=== PATIENT | female | born 1975 | race Caucasian/White ===

== ENCOUNTER → 2016-06-24 | Outpatient (CLI) | payer BC ==
[~2016-06-24] MED LIST: BCPILLS PO; MISCCAP80 PO; MULT-506 PO; PROP20TA67 PO
== END | disposition home or self-care (01) ==
LOC: C.PAPS 09:35
PROVIDERS: ATTEND Obstetrics & Gynecology
DX: Z01.419 Encounter for gynecological examination (general) (routine) without abnormal findings (principal)

== ENCOUNTER → 2016-06-25 | Day surgery (SDC) | payer BC ==
[2016-06-15 15:40] VITALS: BMI 23.0
[~2016-06-25] VITALS: Ht 162.6 cm; Wt 61.4 kg
[2016-06-25 08:51] VITALS: Ht 162.6 cm; Wt 61.4 kg
[2016-06-25 09:00] VITALS: BP 104/57; PULSE 61; TEMP 37.3; O2SAT 99
--- NOTE | 2016-06-25 12:43 | Procedure Note ---
Breath Hydrogen Test Interpretation Hydrogen breath test Ordering Provider: Dr. Jose Reading provider: Findings: 10 Gm Lactulose Time Hydrogen CO2 0 0 3.1 20 4 4.2 40 6 3.9 60 47 4.7 80 39 4.8 100 43 4.4 120 64 4.4 140 37 4.5 160 76 4.5 180 68 3.8 Impression: Marked increase in breath hydrogen during study period. Appears to be consistent with a positive hydrogen breath test. Further Recommendations per Dr. Jose
== END | disposition home or self-care (01) ==
LOC: C.GI 08:26
PROVIDERS: ATTEND Internal Medicine Gastroenterology
DX: K58.0 Irritable bowel syndrome with diarrhea (principal)

== ENCOUNTER → 2016-12-07 | Outpatient (CLI) | payer BC | END | disposition home or self-care (01) | LOC: C.LAB 07:01 | PROVIDERS: ATTEND Nutritionist | DX: R53.83 Other fatigue (principal) ==

== ENCOUNTER → 2017-04-27 | Outpatient (CLI) | payer BC | END | disposition home or self-care (01) | LOC: C.LABSPEC 14:17 | PROVIDERS: ATTEND Obstetrics & Gynecology | DX: L29.2 Pruritus vulvae (principal) ==

== ENCOUNTER 2023-10-08 17:55 | Observation (INO) ==
--- NOTE | 2023-10-08 18:25 | ED Triage Note ---
Date of Service October 08, 2023 Provider in Triage Author: Buzz Roa History of Present Illness This patient was briefly evaluated while in triage. An abbreviated physical exam was performed. This patient is a 48-year-old Female who presents to the ED for evaluation right mid-lower abdominal pain woke her from sleep overnight and has gotten worse as they day has gone on nausea, headache denies vomiting/diarrhea, urinary symptoms hx of lap hysterectomy hx of IBS and SIBO Physical Exam Initial orders for labs and / or imaging were placed and patient was placed in the waiting area until a bed is available. Please see further documentation for the full ED course.
[2023-10-08 19:00] LABS: Basophils # (auto) 0.06 K/uL (0.00-0.20); Basophils % (auto) 0.6 %; Eosinophils # (auto) 0.06 K/uL (0.00-0.50); Eosinophils % (auto) 0.6 %; Immature Granulocytes # (auto) 0.04 K/uL (0.01-0.20); Immature Granulocytes % (auto) 0.4 %; Lymphocytes # (auto) 1.28 K/uL (1.20-3.40); Lymphocytes % (auto) 11.8 %; Mean Corpuscular Hemoglobin 30.1 pg (25.0-34.0); Mean Corpuscular Hgb Conc 33.3 g/dL (32.0-36.0); Mean Corpuscular Volume 90.4 fL (80.0-100.0); Mean Platelet Volume 9.8 fL (9.4-12.4); Monocytes # (auto) 1.29 K/uL (0.11-0.59); Monocytes % (auto) 11.9 %; Neutrophils # (auto) 8.14 K/uL (1.40-6.50); Neutrophils % (auto) 74.7 %; Platelet Count 212 K/uL (130-400); RDW Coefficient of Variation 13.1 % (11.5-14.5); RDW Standard Deviation 43.7 fL (36.4-46.3); Red Blood Count 4.98 M/uL (4.20-5.40); White Blood Count 10.87 K/ul (4.8-10.8)
[2023-10-08] MEDS: OPTIRAY 320 100ml IV ONE (19:56)
[2023-10-08 19:58] LABS: iSTAT Creatinine 0.9 mg/dl (0.6-1.3); iSTAT Ionized Calcium 1.19 mmol/l (1.12-1.32)
[2023-10-08 20:13] LABS: Albumin Globulin Ratio 1.8 (0.9-2); Albumin Level 4.5 gm/dl (3.4-5.0); Bilirubin,Total 0.7 mg/dl (0.2-1.0); Calcium 10.2 mg/dl (8.6-10.3); Creatinine Clr Calc Pharmacy 69.8 ml/min; Est GFR (African American) 93.2 ml/min; Est GFR (Non-African American) 80.4 ml/min; Globulin 2.5 gm/dl (2.5-4.0); Potassium 4.1 mmol/L (3.5-5.1)
--- NOTE | 2023-10-08 20:22 | Emergency Department Note ---
Impression & Plan Diverticulitis of large intestine with complication, Abdominal pain, Nausea, Leukocytosis ED Provider Note NAME: MIKE SCOTT AGE: 48 SEX: F : 1975 ARRIVES VIA: Walk-In INFORMANT: Patient ED PROVIDER(S): Sukhi Taylor MD CHIEF COMPLAINT: Abdominal pain PLAN: Disposition: Admit MEDICAL DECISION MAKING: The patient is a pleasant 48-year-old woman with a past medical history of IBS, history of small bowel bacterial overgrowth, GERD who presents to the emergency department via walk-in accompanied by her for evaluation of generalized abdominal pain associated nausea that began yesterday and persisted into today becoming more severe facility nausea but without vomiting or diarrhea. Denies any fevers, cough congestion, chest pain or shortness of breath. She reports she suspected she may have been having a flare of IBS or acid reflux and wanted to give it time to improve but due to worsening and new character she presents for evaluation. Of note, the patient did arrive to emergency department during time of high volume, acuity and prolonged emergency department waiting times. Critical pathways initiated from triage. On evaluation the patient is fatigued appearing but no distress, afebrile with stable vital signs. She appears clinically dry. She has generalized abdominal tenderness without guarding or rebound. WBC 10.8 K with neutrophil predominance but no left shift. H/H and platelets within normal limits. Chemistry without metabolic acidosis. Electrolytes LFTs without significant abnormality. Lipase normal. UA without convincing evidence infection. CT of the abdomen/pelvis was performed and demonstrates evidence of diverticulitis or diffuse wall thickening is noted of the proximal transverse colon with scattered diverticuli and moderate mesenteric edema characteristic of diverticulitis. Description of small area of questionable free air is noted which may represent small microperforation. There is no evidence of abscess. Transverse colon mass cannot be entirely excluded and follow-up CT following resolution of symptoms is recommended. Findings reviewed with the patient and her at the bedside. They do agree with plan for admission for further management. Treatment was initiated with IV Zosyn. Case was discussed with Dr. Hernandez, [facility] hospitalist who will evaluate the patient for admission. Case was also reviewed with Dr. Madden, general surgery on-call. Agrees admission to hospital service for IV antibiotics. Surgical be available for inpatient consultation. Appreciate consultation and recommendations. Admitting team was updated. Further management per admitting team. Triage Nursing notes reviewed and agree them. Prior/external medical records reviewed Vital Signs: reviewed Differential diagnosis: Gastroenteritis, food borne illness, infections, appendicitis, diverticulitis, inflammatory bowel disease, obstruction, GI bleed, biliary pathology, volvulus, as well as other pathologies. ER treatment provided: See below. Diagnostics interpreted by me: Cardiac Monitoring: An order for continuous cardiac monitoring was placed and demonstrated normal sinus rhythm, 83 bpm, no ectopy. Laboratory studies: See below Imaging studies: See below Consultation(s): Dr. Hernandez, [facility] hospitalist. Dr. Madden, general surgery on-call. HPI: The patient is a pleasant 48-year-old woman with a past medical history of IBS, history of small bowel bacterial overgrowth, GERD who presents to the emergency department via walk-in accompanied by her for evaluation of generalized abdominal pain associated nausea that began yesterday and persisted into today becoming more severe facility nausea but without vomiting or diarrhea. Denies any fevers, cough congestion, chest pain or shortness of breath. She reports she suspected she may have been having a flare of IBS or acid reflux and wanted to give it time to improve but due to worsening and new character she presents for evaluation. ROS: See above HPI for pertinent positives & negatives. A total of 10 systems reviewed and were otherwise negative. VITALS:See Below PHYSICAL EXAMINATION: GENERAL: Awake, alert, in no distress HENT: Normocephalic, atraumatic. Oropharynx with dry mucous membranes and otherwise unremarkable. EYES: Normal conjunctiva. Sclera non-icteric. NECK: Supple. No nuchal rigidity. FROM. No JVD. RESPIRATORY: Clear to auscultation. CARDIAC: Regular rate, normal rhythm. Extremities warm and well perfused. Pulses equal. ABDOMEN: Soft, non-distended. Mild generalized tenderness to palpation. No rebound or guarding. MUSCULOSKELETAL: Chest examination reveals no tenderness. The back is symmetrical on inspection without obvious abnormality. There is no CVA tenderness to palpation. No joint edema. LOWER EXTREMITIES: Calves are equal size bilaterally and non-tender. No edema. No discoloration. NEURO: Normal sensorium. No sensory or motor deficits noted. SKIN: No rash or jaundice noted. Sukhi Taylor MD Past Med/Surg History Problem List (Updated 10/09/23 @ 04:59 by Sukhi Taylor MD) Leukocytosis (Acute) Nausea (Acute) Abdominal pain (Acute) Diverticulitis of large intestine with complication (Acute) Encounter for pre-operative examination Migraine Encounter for routine gynecological examination with Papanicolaou smear of cervix (Acute) Menorrhagia Medical History GERD (gastroesophageal reflux disease) Hypothyroidism Hx of migraines Gestational diabetes hx-resolved Anemia Abnormal menses Cycles 25 days, bleeds 7 days but spots up to 14 days total. Genital herpes Patient states not correct / no history of outbreak Epidermal cyst pt unsure about this? Surgical History H/O: hysterectomy robotic TLH, retains ovaries History of esophagogastroduodenoscopy (EGD) Hx of colonoscopy H/O tubal ligation H/O oral surgery Hx of section x3 Family History Aunt Breast cancer Mother Hypertension Son Celiac sprue Grandmother (Maternal) Osteoporosis Social History Smoking Status: Never smoker Second Hand Exposure: No; Do You Dip or Chew Tobacco: No; Hx Alcohol Use: No Hx Substance Use: No Preferred Language: Mohawk Communication Ability: Effective Rat Exterminator Required: No Beliefs That Will Affect Care: None marital status: Current Living Situation: Spouse Other Information That Helps Us Care for You: No Feels Safe at Home: Yes Safety Concerns: Feels Safe At This Time Assistive Devices: Glasses Allergies Allergies Allergy/AdvReac Type Severity Reaction Status Date / Time strawberry Allergy Intermediate hives Verified 11/18/22 09:23 No Known Drug Allergies Allergy Unknown . Verified 11/18/22 09:23 egg Allergy Headache Verified 11/18/22 09:23 Home Meds Home Medications Medication Instructions Recorded Confirmed cholecalciferol (vitamin D3) 50 50 mcg PO QPM 09/18/19 10/09/23 mcg (2,000 unit) tablet fluticasone propionate 50 1 spray intranasal QAM 09/18/19 10/09/23 mcg/actuation nasal spray,suspension pyridoxine (vitamin B6) 50 mg 50 mg PO QPM 09/18/19 10/09/23 tablet biotin 800 mcg tablet 800 mcg PO QPM 06/15/22 10/09/23 sucralfate 1 gram tablet (Carafate) 1 g PO TID PRN stomach cramping 09/14/22 10/09/23 levothyroxine 50 mcg tablet 50 mcg PO QAM 09/23/22 10/09/23 Results & Data (ED) Vital Signs Vital Signs - 24 hr 10/08/23 18:23 10/08/23 20:54 10/08/23 21:00 Temperature 37.0 C Temperature Source Temporal Artery Scan Pulse Rate 83 68 68 Pulse Rate from SpO2 Sensor 69 Respiratory Rate 18 20 Blood Pressure 120/73 117/66 Blood Pressure Mean 88 83 Pulse Oximetry 100 100 Oxygen Delivery Method Room Air Room Air Sepsis Recent Fever Within 48 Hours No Sepsis New/Unexplained Change in Mental Status No Sepsis Action Taken by Nursing No Action Required 10/08/23 21:30 10/08/23 22:33 10/08/23 23:12 Temperature Temperature Source Pulse Rate 68 66 70 Pulse Rate from SpO2 Sensor 69 66 Respiratory Rate 16 14 21 Blood Pressure 113/68 109/64 111/62 Blood Pressure Mean 83 79 78 Pulse Oximetry 99 98 97 Oxygen Delivery Method Room Air Room Air Sepsis Recent Fever Within 48 Hours Sepsis New/Unexplained Change in Mental Status Sepsis Action Taken by Nursing 10/09/23 00:00 Temperature Temperature Source Pulse Rate 60 Pulse Rate from SpO2 Sensor Respiratory Rate 23 Blood Pressure 107/67 Blood Pressure Mean 80 Pulse Oximetry 96 Oxygen Delivery Method Sepsis Recent Fever Within 48 Hours Sepsis New/Unexplained Change in Mental Status Sepsis Action Taken by Nursing Laboratory Data Attestation: I reviewed the patient's lab results. 10/08/23 18:42 10/08/23 Unknown Lab Results 10/08/23 10/08/23 10/08/23 Range/Units 18:42 19:44 Unknown WBC 10.87 H (4.8-10.8) K/ul RBC 4.98 (4.20-5.40) M/uL Hgb 15.0 (12.0-16.0) g/dl POC Hgb 15.0 (12.0-16.0) g/dl Hct 45.0 (37.0-47.0) % POC Hct 44 (37-47) % MCV 90.4 (80.0-100.0) fL MCH 30.1 (25.0-34.0) pg MCHC 33.3 (32.0-36.0) g/dL RDW Std Deviation 43.7 (36.4-46.3) fL RDW Coeff of Adan 13.1 (11.5-14.5) % Plt Count 212 (130-400) K/uL MPV 9.8 (9.4-12.4) fL Immature Gran % (Auto) 0.4 % Neut % (Auto) 74.7 % Lymph % (Auto) 11.8 % Moca % (Auto) 11.9 % Eos % (Auto) 0.6 % Baso % (Auto) 0.6 % Neut # (Auto) 8.14 H (1.40-6.50) K/uL Lymph # (Auto) 1.28 (1.20-3.40) K/uL Moca # (Auto) 1.29 H (0.11-0.59) K/uL Eos # (Auto) 0.06 (0.00-0.50) K/uL Baso # (Auto) 0.06 (0.00-0.20) K/uL Immature Gran # (Auto) 0.04 (0.01-0.20) K/uL POC Sodium 137 (135-144) mmol/L Sodium Cancelled 138 POC Potassium 4.0 (3.3-5.0) mmol/L Potassium Cancelled 4.1 POC Chloride 102 (101-112) mmol/L Chloride Cancelled 103 Carbon Dioxide Cancelled 28 POC Total CO2 25 (24-31) mmol/L Anion Gap Cancelled 7 POC Anion Gap 15.0 L (16-25) mmol/L POC BUN 10 (7-18) mg/dl BUN Cancelled 12 Creatinine Cancelled 0.86 POC Creatinine 0.9 (0.6-1.3) mg/dl Est Cr Clr Drug Dosing Cancelled 69.8 Est GFR ( Amer) Cancelled 93.2 Est GFR (Non-Af Amer) Cancelled 80.4 BUN/Creatinine Ratio Cancelled 14.0 Glucose Cancelled 97 POC Glucose (other) 95 (70-99) mg/dl Calcium Cancelled 10.2 POC Ioniz Calcium Leonila 1.19 (1.12-1.32) mmol/l Total Bilirubin Cancelled 0.7 AST Cancelled 12 L ALT Cancelled 14 Alkaline Phosphatase Cancelled 41 Total Protein Cancelled 7.0 Albumin Cancelled 4.5 Globulin Cancelled 2.5 Albumin/Globulin Ratio Cancelled 1.8 Lipase Cancelled 18 Urine Color Yellow Urine Appearance Clear (Clear) Urine pH 7.0 (4.5-7.5) Ur Specific Jasper > 1.045 H (1.000-1.030) Urine Protein Trace H (Negative) Urine Glucose (UA) Negative (Negative) Urine Ketones 1+ H (Negative) Urine Blood Negative (Negative) Urine Nitrite Negative (Negative) Urine Bilirubin Negative (Negative) Urine Urobilinogen Negative (Negative) Ur Leukocyte Esterase Negative (Negative) Urine WBC (Auto) 0-5 (0-5) /hpf Urine RBC (Auto) 3-5 H (0-2) /hpf U Hyaline Cast (Auto) 0-2 (0-2) /lpf U Epithel Cells (Auto) 0-2 (0-2) /hpf Urine Bacteria (Auto) None Seen (None Seen) Administered Medications Sodium Chloride (Nss) 1,000 mls @ 200 mls/hr IV .Q5H STA Stop: 10/09/23 05:09 Last Admin: 10/09/23 00:26 Dose: 200 mls/hr Documented By: TRESA Discontinued Medications Acetaminophen (Ofirmev) 1,000 mg in 100 mls @ 400 mls/hr IV NOW STA Stop: 10/08/23 21:47 Last Infusion: 10/08/23 22:30 Dose: Infused Documented By: Admin: 10/08/23 21:45 Dose: 400 mls/hr Documented By: JESS Piperacillin Sod/Tazobactam Sod (Zosyn) 4.5 gm in 100 mls @ 200 mls/hr IV NOW ONE Stop: 10/08/23 23:27 Last Infusion: 10/09/23 00:09 Dose: Infused Documented By: Admin: 10/08/23 23:09 Dose: 200 mls/hr Documented By: TRESA Ioversol (Optiray 320 100ml) 94 ml IV ONCE ONE Stop: 10/08/23 19:56 Last Admin: 10/08/23 19:56 Dose: 94 ml Documented By: RICKIE Morphine Sulfate (Morphine Sulfate 4 Mg/Ml 1 Ml Carp\Vial) 4 mg IV Q2H PRN PRN Reason: Severe Pain (Rating 7,8,9,10) Stop: 10/22/23 22:57 Last Admin: 10/09/23 00:26 Dose: 4 mg Documented By: TRESA Imaging Data Radiologist's Impression: Abdomen/Pelvis CT 10/08/23 18:25 Exam(s): CT ABDOMEN + PELVIS With Contrast IV Amt: 94ml optiray 320 EXAM: CT Abdomen and Pelvis With Intravenous Contrast CLINICAL HISTORY: Reason for exam: RIGHT ABDOMINAL PAIN. TECHNIQUE: Axial computed tomography images of the abdomen and pelvis with intravenous contrast. CTDI is 14.43 mGy and DLP is 697.8 mGy-cm. Automated exposure control was utilized for the study. A dose lowering technique was utilized adhering to the principles of ALARA. CONTRAST: Patient received 94ml optiray 320 of IV contrast COMPARISON: No relevant prior studies available. FINDINGS: Lung bases: Unremarkable. No mass. No consolidation. ABDOMEN: Liver: Unremarkable. No mass. Gallbladder and bile ducts: Unremarkable. No calcified stones. No ductal dilation. Pancreas: Unremarkable. No mass. No ductal dilation. Spleen: Unremarkable. No splenomegaly. Adrenals: Unremarkable. No mass. Kidneys and ureters: Unremarkable. No solid mass. No hydronephrosis. Stomach and bowel: Diffuse wall thickening of the proximal transverse colon with scattered diverticula and moderate mesenteric edema, characteristic of diverticulitis. Fluid-filled loops of distal small bowel. No evidence of obstruction. PELVIS: Appendix: The appendix is not visualized. Bladder: Unremarkable. No mass. Reproductive: Unremarkable as visualized. ABDOMEN and PELVIS: Intraperitoneal space: Small area of questionable free air best seen on series 2, image 42 which may represent small microperforation. No abscess. No significant fluid collection. Bones/joints: No acute fracture. No dislocation. Soft tissues: Unremarkable. Vasculature: Unremarkable. No abdominal aortic aneurysm. Lymph nodes: Unremarkable. No enlarged lymph nodes. IMPRESSION: 1. Diffuse wall thickening of the proximal transverse colon with scattered diverticula and moderate mesenteric edema, characteristic of diverticulitis. Small area of questionable free air best seen on series 2, image 42 which may represent small microperforation. No abscess Transverse colon mass cannot be entirely excluded, recommend follow-up after resolution Electronically signed by: Alexus Coley MD 10/08/23 22:37 PM Discharge Plan Visit Data Chief Complaint: Abdominal Pain Stated Complaint: POSSIBLE APPENIDISITIS, ABD PAIN, FEELS WARM ED Provider: Sukhi Taylor Discharge Problem: Diverticulitis of large intestine with complication, Abdominal pain, Nausea, Leukocytosis Patient Disposition: Admitted As Inpatient Discharge Instructions Interventions: ED Discharge Assessment Last Done: 10/09/23 00:22 Discharge Problem: Abdominal pain Qualifiers: Abdominal location: generalized Qualified Code(s): R10.84 - Generalized abdominal pain Leukocytosis Qualifiers: Leukocytosis type: unspecified Qualified Code(s): D72.829 - Elevated white blood cell count, unspecified
[2023-10-08 21:40] LABS: Appearance Urine Clear (Clear); Bacteria Urine Automated None Seen (None Seen); Bilirubin Urine Negative (Negative); Blood Urine Negative (Negative); Cast Urine Automated 0-2 /lpf (0-2); Color Urine Yellow; Epithelial Cell Urine Auto 0-2 /hpf (0-2); Glucose Urine UA Negative (Negative); Ketones Urine 1+ (Negative); Leukocyte Esterase Urine Negative (Negative); Nitrite Urine Negative (Negative); Protein Urine Trace (Negative); Specific Gravity Urine > 1.045 (1.000-1.030); Urobilinogen Urine Negative (Negative); WBC Urine Automated 0-5 /hpf (0-5)
[2023-10-08] MEDS: ACETAMINOPHEN 1,000 MG/100 ML VIAL IV STA (21:45)
--- NOTE | 2023-10-08 22:38 | CT Scan Report ---
Exam(s): CT ABDOMEN + PELVIS With Contrast IV Amt: 94ml optiray 320 EXAM: CT Abdomen and Pelvis With Intravenous Contrast CLINICAL HISTORY: Reason for exam: RIGHT ABDOMINAL PAIN. TECHNIQUE: Axial computed tomography images of the abdomen and pelvis with intravenous contrast. CTDI is 14.43 mGy and DLP is 697.8 mGy-cm. Automated exposure control was utilized for the study. A dose lowering technique was utilized adhering to the principles of ALARA. CONTRAST: Patient received 94ml optiray 320 of IV contrast COMPARISON: No relevant prior studies available. FINDINGS: Lung bases: Unremarkable. No mass. No consolidation. ABDOMEN: Liver: Unremarkable. No mass. Gallbladder and bile ducts: Unremarkable. No calcified stones. No ductal dilation. Pancreas: Unremarkable. No mass. No ductal dilation. Spleen: Unremarkable. No splenomegaly. Adrenals: Unremarkable. No mass. Kidneys and ureters: Unremarkable. No solid mass. No hydronephrosis. Stomach and bowel: Diffuse wall thickening of the proximal transverse colon with scattered diverticula and moderate mesenteric edema, characteristic of diverticulitis. Fluid-filled loops of distal small bowel. No evidence of obstruction. PELVIS: Appendix: The appendix is not visualized. Bladder: Unremarkable. No mass. Reproductive: Unremarkable as visualized. ABDOMEN and PELVIS: Intraperitoneal space: Small area of questionable free air best seen on series 2, image 42 which may represent small microperforation. No abscess. No significant fluid collection. Bones/joints: No acute fracture. No dislocation. Soft tissues: Unremarkable. Vasculature: Unremarkable. No abdominal aortic aneurysm. Lymph nodes: Unremarkable. No enlarged lymph nodes. IMPRESSION: 1. Diffuse wall thickening of the proximal transverse colon with scattered diverticula and moderate mesenteric edema, characteristic of diverticulitis. Small area of questionable free air best seen on series 2, image 42 which may represent small microperforation. No abscess Transverse colon mass cannot be entirely excluded, recommend follow-up after resolution Electronically signed by: Alexus Coley MD 10/08/23 22:37 PM
[2023-10-08] MEDS ORDERED: MoRPHine SULFATE 2 MG/ML CARP IV PRN (22:58)
[2023-10-08] MEDS: PIPERACILLIN/TAZOBACTAM 4.5 GM/100 ML BAG IV ONE (23:09)
--- OUTSIDE RECORDS SUMMARY | 2023-10-08 23:35 | External Medical Summary ---
Author Name Unknown Address Unknown Organization K01:[facility] [address] [place] [address] Laboratory Report Ordering Provider Test Date Status FELIX MOYA 05/26/2023 08:18:22 Final Observation Date Value Abnormality Reference (Units ) Status T4, Free 05/26/2023 08:18:22 1.3 0.9-1.7 (n g/dL) Final Performing Location [facility] [address] [place] [address]
--- OUTSIDE RECORDS SUMMARY | 2023-10-08 23:35 | External Medical Summary ---
Author Name Unknown Address Unknown Organization K0G:[facility] [address] [place] [id number] Laboratory Report Ordering Provider Test Date Status FELIX MOYA 05/26/2023 08:18:22 Final Observation Date Value Abnormality Reference (Units ) Status BUN 05/26/2023 08:18:22 20 6-20 (mg/dL) Final Creatinine 05/26/2023 08:18:22 1.1 Above high normal 0.5-1.0 (mg/dL) Final Glomerular filtration rate/1.73 sq M.predicted [Volume Rate/Area] in Serum, Plasma or Blood by Creatinine-based formula (CKD-EPI) 05/26/2023 08:18:22 64 >=60 (mL/min) Final eGFR is calculated based on the CKD-EPI 2020 equation Sodium 05/26/2023 08:18:22 139 135-146 (m mol/L) Final Potassium 05/26/2023 08:18:22 4.4 3.5-5.1 (m mol/L) Final Cl 05/26/2023 08:18:22 104 98-107 (mm ol/L) Final CO2 05/26/2023 08:18:22 21 Below low normal 22- 32 (mmol/L) Final Anion gap 05/26/2023 08:18:22 14 7-15 (mmol /L) Final Glucose 05/26/2023 08:18:22 95 70-120 (mg /dL) Final Calcium 05/26/2023 08:18:22 9.5 8.4-10.2 ( mg/dL) Final Performing Location [facility] [address] [place] [id number]
--- OUTSIDE RECORDS SUMMARY | 2023-10-08 23:35 | External Medical Summary | Summary of Care ---
Author Name Unknown Organization [facility] Address [address] [place] [address] Phone [phone] Care Team Providers Care Fire Management Specialist Name Role Phone Juan Carlos Cool MD Primary Care Provider [phone] Reason for Visit * Reason Comments Outpatient Testing Encounter Details Date Type Department Care Team (Late st Contact Info) Description 05/26/2023 8:50 AM EDT Laboratory Laboratory, [facility] [address] [facility] [place] [address] [facility] 132 [facility] [place] [address] Acquired hypothyroidism; Gastroesophageal reflux disease with esophagitis without hemorrhage Allergies Active Allergy Reactions Criticality Noted Date Comments Egg-Derived Products Neuro complications (Please comment) 06/07/2018 Headaches documented as of this encounter (statuses as of 05/26/2023) Medications Medication Sig Dispensed Refills Start Date End Date Status Cholecalciferol (VITAMIN D) 2000 units Capsule Take 1,000 Units by mouth daily. 0 Active B Complex Capsule Take 1 Cap by mouth daily. 0 Active Calcium 600 MG Tablet Take 1 Tablet by mouth in the morning and 1 Tablet at noon and 1 Tablet in the evening. Take with meals. 0 Active Levothyroxine Sodium 50 MCG Oral Tablet (Levoxyl) Take 1 Tablet by mouth in the morning. 90 Tablet 3 05/08/2022 Active Rizatriptan Benzoate 10 MG Oral Tablet Disintegrating (Maxalt-DELICATESSEN GOODS STOCK CLERK)Indications :Migraine with aura and with status migrainosus, not intractable Take 1 Tablet by mouth as needed for Migraine. at onset of headache, may repeat every 2 hours. No more than 2 pills in 24 hours 20 Tablet 0 05/26/2023 Active Fluticasone Propionate 50 MCG/ACT Nasal Suspension (Flonase)Indications:Ch ronic rhinitis SPRAY 2 SPRAYS INTO EACH NOSTRIL EVERY DAY 3 Each 2 05/26/2023 Active Sucralfate 1 GM Oral Tablet (Carafate) Take 1 Tablet by mouth every evening. 90 Tablet 3 05/26/2023 Active documented as of this encounter (statuses as of 05/26/2023) Active Problems Problem Noted Date Diagnosed Date Migraine variant 05/26/2023 Acquired hypothyroidism 04/30/2021 Small intestinal bacterial overgrowth 10/01/2016 Irritable bowel syndrome wit h both constipation and diarrhea 04/24/2016 Gastroesophageal reflux disease with esophagitis 03/27/2016 documented as of this encounter (statuses as of 05/26/2023) Resolved Problems Problem Noted Date Diagnosed Date Resolved Date Allergic contact dermatitis 11/29/2017 12/02/2018 Chronic rhinitis 11/29/2017 12/02/2018 Chronic tension-type headach e, not intractable 04/24/2016 05/26/2023 Elevated 1 hour post-prandial sugars 11/11/2009 03/27/2016 Overview: Pt with a hx/o GDM with her prior . Was started on accuchecks for this w/o a 1 hour or 3 hour GCT. Pt was given instructions to check fasting and 1 hour PP sugars with goals of 95 for fasting and 150 for 1 hour PP. After review of pt's log, limited 1 hour checks noted, with 3 of the 1 hour PP in the last 2 weeks found to be >150. After being told her baby's AC measurement was @ 3%, she was instructed to come off her GDM diet. Given the increased likelyhood that Ms. Fontenot has GDM, she has been instructed to continue with accuchecks. She has been recommended to undergo fasting and 2 hour PP checks with goals of 95 for fasting and 120 for 2 hour PP. She understands that the goal for her GDM is to keep her sugars w/in her goals as best possible, while avoiding hypoglycemia. Today's U/S (11/11/09) notes an AC at the 78% with an overall EFW at the 42%. She has agreed to f/u in 3 weeks for a f/u growth scan. documented as of this encounter (statuses as of 05/26/2023) Immunizations Name Administration Dates Next Due COVID-19 mRNA, LNP-s, No Pre serve, 2-Dose Series (Pfizer) 01/21/2021,05/22/2020,04/29/2020 DTaP Dipth/Tet/Acell Pertussis (Infanrix), Peds 12/04/2009 Seasonal Influenza, PF, 6 M & above, IM , (FluLaval or Fluzone) 11/19/2017,11/16/2016 Seasonal Influenza, Quadriva lent, No Preserve, IM 02/06/2016 Seasonal Influenza, Quadriva lent, No Preserve, Mdck 11/11/2022,10/30/2021,11/09/2019 Seasonal Influenza, Recombin ant, RIV4, PF, (Flublock) 12/10/2020,01/02/2019 Seasonal Influenza, Split, I IV3, With Preserve, Inj 11/06/2013,12/06/2012,02/25/2012, 011 documented as of this encounter Social History Tobacco Use Types Packs/Day Years Used Date Smoking Tobacco: Never Smokeless Tobacco: Never Alcohol Use Standard Drinks/Week Comments No 0 (1 standard drink = 0.6 oz pur e alcohol) PHQ-2 Answer Date Recorded PHQ-2 Score 0 11/29/2018 Hunger Vital Sign Answer Date Recorded Within the past 12 months, y ou worried that your food would run out before you got the money to buy more. Never true 05/26/19 23 Within the past 12 months, t he food you bought just didn't last and you didn't have money to get more. Never true 05/25/2022 Sex and Gender Information Value Date Recorded Sex Assigned at Female 05/25/2022 12:50 PM EDT Gender Identity Female 05/25/2022 12:50 PM EDT Sexual Orientation Straight 05/25/2022 12 :50 PM EDT Job Start Date Occupation Industry Not on file Not on file Not on file documented as of this encounter Plan of Treatment Upcoming Encounters Date Type Department Care Team (Late st Contact Info) Description 05/26/2024 9:00 AM EDT Office Visit Family [facility] [address] [place] [address] Juan Carlos Cool MD [address] [place] [address] Pending Results Name Type Priority Associated Diagnoses Date /Time TSH Lab Routine Acquired hypothyroidism 05/26/2023 8:18 AM EDT T4, FREE Lab Routine Acquired hypothyroidism 05/26/2023 8:18 AM EDT T3, FREE Lab Routine Acquired hypothyroidism 05/26/2023 8:18 AM EDT THYROID ANTIBODY AND TPO ANTIBODY Lab Routine Acquired hypothyroidism 05/26/2023 8:18 AM EDT BASIC METABOLIC PANEL Lab Routine Gastroesophageal reflux disease with esophagitis without hemorrhage 05/26/2023 8:18 AM EDT Health Maintenance Due Date Last Done Comments HIV Screening 08/05/1991 Hepatitis C Screening 1994 Hepatitis B (1 of 3 - 19+ 3-dose series) 08/05/1995 HPV/Co-Test 2006 Depression Screening 11/30/2019 11/29/2018 DTaP,Tdap,and Td Vaccines (2 - Tdap) 12/05/2019 12/04/2009 Pap Smear 02/11/2021 02/11/2018, 05/0 10/2015, 01/05/2014, Additional history exists Cologuard 2021 Fecal Occult Blood Test 2021 Sigmoidoscopy 2021 COVID-19 Vaccine ( season) 2022 01/21/2021, 05/22/2020, 04/29/2020 TSH 06/13/2023 06/12/2022, 04/16, 06/09/2021, Additional history exists Lipid Panel 12/08/2023 12/07/2018 Mammogram 03/12/2024 03/12/2023, 02/16, 10/18/2020, Additional history exists Colonoscopy 05/08/2026 05/08/2016, 05/08/2016 Colorectal Cancer Screening 05/08/2026 Influenza Vaccine (FLU shot) Completed 11/11/2022, 10/30/2021, 12/10/2020, Additional history exists Cervical Cancer Screening Discontinued GARDASIL-HPV IMMUNIZATION SERIES Aged Out No longer eligible based on patient's age to complete this topic MENINGOCOCCAL (MENACTRA/MENVEO) Aged Out No longer eligible based on patient's age to complete this topic Pneumococcal Vaccine: Pediatrics (0 to 5 Years) and At-Risk Patients (6 to 64 Years) Aged Out No longer eligible based on patient's age to complete this topic documented as of this encounter Medical Devices Not on filedocumented as of this encounter Visit Diagnoses Diagnosis Acquired hypothyroidism Unspecified hypothyroidism Gastroesophageal reflux disease with esophagitis without hemorrhage documented in this encounter Care Teams Fire Management Specialist Relationship Specialty Start Date End Date Juan Carlos Cool MD [address] [place] [address] PCP - General Family Medicine 02/06/16 documented as of this encounter
--- OUTSIDE RECORDS SUMMARY | 2023-10-08 23:35 | External Medical Summary | Summary of Care ---
Author Name Unknown Organization [facility] Address [address] [place] [address] Phone [phone] Care Team Providers Care Precision Devices Inspector/Tester Name Role Phone Juan Carlos Cool MD Primary Care Provider [phone] Encounter Details Date Type Department Care Team (Late st Contact Info) Description 06/28/2023 Orders Only Outcomes Research Department [address] [place] [address] Nicolasa Lizama CHRA [employer] [facility] Other*[id number] Allergies Active Allergy Reactions Criticality Noted Date Comments Egg-Derived Products Neuro complications (Please comment) 06/07/2018 Headaches documented as of this encounter (statuses as of 06/28/2023) Medications Medication Sig Dispensed Refills Start Date [...] Rizatriptan Benzoate 10 MG Oral Tablet Disintegrating (Maxalt-HEADING MATCHER AND ASSEMBLER)Indications :Migraine with aura and with status migrainosus, [...] as of this encounter (statuses as of 06/28/2023) Active Problems Problem Noted Date Diagnosed Date Migraine variant 05/26/2023 Acquired hypothyroidism 04/30/2021 Small intestinal bacterial overgrowth 10/01/2016 Irritable bowel syndrome wit h both constipation and diarrhea 04/24/2016 Gastroesophageal reflux disease with esophagitis 03/27/2016 documented as of this encounter (statuses as of 06/28/2023) Resolved Problems Problem Noted Date Diagnosed Date [...] as of this encounter (statuses as of 06/28/2023) Immunizations Name Administration Dates Next Due COVID-19 [...] 05/26/2024 9:00 AM EDT Office Visit Family [facility] [address] [place] [address] Juan Carlos Cool MD [address] [place] [address] Scheduled Orders Name Type Priority Associated Diagnoses Orde r Schedule MYCODE SUBSEQUENT ADULT Lab Routine [facility] Research Other*[id number] Every 6 Months for 2 Occurrences starting 06/28/2023 until 07/17/2024 Health Maintenance Due Date Last Done Comments [...] Vaccine ( season) 2022 01/21/2021, 05/22/2020, 04/29/2020 Lipid Panel 12/08/2023 12/07/2018 Mammogram 03/12/2024 03/12/2023, 02/16, 10/18/2020, Additional history exists TSH 05/25/2024 05/26/2023, 05/17, 05/08/2022, Additional history exists Colonoscopy 05/08/2026 05/08/2016, 05/08/2016 Colorectal Cancer Screening 05/08/2026 Diabetes Screening 05/25/2026 05/26/2023, 0 06/12/2022, 05/08/2022, Additional history exists Influenza Vaccine (FLU shot) Completed 11/11/2022, 10/30/2021, [...] as of this encounter Visit Diagnoses Diagnosis [facility] Other*[id number] documented in this encounter Care Teams Precision Devices Inspector/Tester Relationship Specialty Start Date End Date Juan Carlos Cool MD [address] [place] [address] PCP - General Family Medicine 02/06/16 documented as of this encounter
--- OUTSIDE RECORDS SUMMARY | 2023-10-08 23:35 | External Medical Summary ---
Author Name Unknown Address Unknown Organization K[facility] - [address] [place] [address] Laboratory Report Ordering Provider Test Date Status FELIX MOYA 05/26/2023 08:18:22 Final Observation Date Value Abnormality Reference (Units ) Status TSH 05/26/2023 08:18:22 1.45 0.27-4.20 (uIU/mL) Final Performing Location [facility] - [address] [place] [address]
--- OUTSIDE RECORDS SUMMARY | 2023-10-08 23:35 | External Medical Summary | Summary of Care ---
Author Name Unknown Organization [facility] Address [address] [place] [facility] [place] [address] Phone [phone] Care Team Providers Care Mattress Finisher Name Role Phone Juan Carlos Cool MD Primary Care Provider [phone] Reason for Visit * Reason Comments Physical-Exam Pt here for cpe Encounter Details Date Type Department Care Team (Late st Contact Info) Description 05/26/2023 7:40 AM EDT Office [facility] [place] [address] Juan Carlos Cool MD [address] [place] [address] Routine general medical examination at a health care facility*; Acquired hypothyroidism; Gastroesophageal reflux disease with esophagitis without hemorrhage; Irritable bowel syndrome with both constipation and diarrhea; Small intestinal bacterial overgrowth; Migraine variant; Migraine with aura and with status migrainosus, not intractable; Chronic rhinitis Allergies Active Allergy Reactions Criticality Noted Date [...] Rizatriptan Benzoate 10 MG Oral Tablet Disintegrating (Maxalt-DIVERSIONAL THERAPIST)Indicati ons:Migraine with aura and with status migrainosus, not intractable Take 1 Tablet by mouth as needed for Migraine. at onset of headache, may repeat every 2 hours. No more than 2 pills in 24 hours 20 Tablet 0 05/26/2023 Active Fluticasone Propionate 50 MCG/ACT Nasal Suspension (Flonase)Indications :Chronic rhinitis SPRAY 2 SPRAYS INTO EACH NOSTRIL EVERY DAY 3 Each 2 05/26/2023 Active Sucralfate 1 GM Oral Tablet (Carafate) Take 1 Tablet by mouth every evening. 90 Tablet 3 05/26/2023 Active Sucralfate 1 GM Oral Tablet (Carafate) TAKE 1 TABLET BY MOUTH 4 TIMES A DAY - HALF AN HOUR BEFORE MEALS AND AT BEDTIME 120 Tab 5 10/29/2020 05/26/2023 Discontinue d(Refill) Fluticasone Propionate 50 MCG/ACT Nasal Suspension (Flonase)Indications :Chronic rhinitis SPRAY 2 SPRAYS INTO EACH NOSTRIL EVERY DAY 3 Each 2 11/02/2022 05/26/2023 Discontinue d(Refill) Rizatriptan Benzoate 10 MG Oral Tablet Disintegrating (Maxalt-DIVERSIONAL THERAPIST)Indicati ons:Migraine with aura and with status migrainosus, not intractable Take 1 Tablet by mouth as needed for Migraine. at onset of headache, may repeat every 2 hours. No more than 2 pills in 24 hours 20 Tablet 0 04/08/2023 05/26/2023 Discontinue d(Refill) documented as of this encounter (statuses as [...] mRNA, LNP-s, No Pre serve, 2-Dose Series ([employer] [place]) 01/21/2021,05/22/2020,04/29/2020 DTaP Dipth/Tet/Acell Pertussis (Infanrix), Peds 12/04/2009 [...] on file documented as of this encounter Last Filed Vital Signs Vital Sign Reading Time Taken Comments Blood Pressure 102/64 05/26/2023 7:46 AM EDT Pulse 92 05/26/2023 7:46 AM EDT Temperature 36.8 C (98.2 F) 05/26/2023 7:46 AM ED T Respiratory Rate 18 05/26/2023 7:46 AM EDT Oxygen Saturation 97% 05/26/2023 7:46 AM EDT Inhaled Oxygen Concentration - - Weight 66.7 kg (147 lb) 05/26/2023 7:46 AM EDT Height 163 cm (5' 4.17") 05/26/2023 7:46 AM EDT Body Mass Index 25.1 05/26/2023 7:46 AM EDT documented in this encounter Progress Notes * Juan Carlos Cool MD - 05/26/2023 9:09 AM EDT SUBJECTIVE: Michelle Fontenot is a 47 year old female. Chief Complaint Patient presents with Physical-Exam Pt here for cpe HPI: Yearly exam. Feels well. Health maintenance addressed. She is not having any new GI symptoms, but wonders when she is due for her next colonoscopy. She will be due in 2026. She is clinically euthyroid. Will check labs today. Thiago has worked for her migraines. Patient Active Problem List Diagnosis Code Gastroesophageal reflux disease with esophagitis K21.00 Irritable bowel syndrome with both constipation and diarrhea K58.2 Small intestinal bacterial overgrowth K63.8219 Acquired hypothyroidism E03.9 Migraine variant G43.809 Current Outpatient Medications Medication Sig Dispense Refill Cholecalciferol (VITAMIN D) 2000 units Capsule Take 1,000 Units by mouth daily. B Complex Capsule Take 1 Cap by mouth daily. Calcium 600 MG Tablet Take 1 Tablet by mouth in the morning and 1 Tablet at noon and 1 Tablet in the evening. Take with meals. Levothyroxine Sodium 50 MCG Oral Tablet (Levoxyl) Take 1 Tablet by mouth in the morning. 90 Tablet 3 Rizatriptan Benzoate 10 MG Oral Tablet Disintegrating (Maxalt-DIVERSIONAL THERAPIST) Take 1 Tablet by mouth as neededfor Migraine. at onset of headache, may repeat every 2 hours. No more than 2 pills in 24 hours 20 Tablet 0 Fluticasone Propionate 50 MCG/ACT Nasal Suspension (Flonase) SPRAY 2 SPRAYS INTO EACH NOSTRIL EVERYDAY 3 Each 2 Sucralfate 1 GM Oral Tablet (Carafate) Take 1 Tablet by mouth every evening. 90 Tablet 3 No current facility-administered medications for this visit. Allergy: Review of patient's allergies indicates: Allergen Reactions Egg-Derived Products Neuro complications (Please comment) Headaches OBJECTIVE: BP 102/64 | Pulse 92 | Temp 36.8 C (98.2 F) (Tympanic) | Resp 18 | Ht 1.63 m (5' 4.17") | Wt 66.7 kg (147 lb) | SpO2 97% | BMI 25.10 kg/m | BSA 1.74 m General: alert, healthy, and no distress Head: Normocephalic, No masses, lesions, tenderness or abnormalities Neck: supple, no adenopathy, no bruits, thyroid normal size, non-tender, without nodularity Lungs: chest symmetric with normal AP diameter, no chest deformities noted, no chest wall tenderness, lungs clear to auscultation Heart: regular rate & rhythm, no murmur, and no gallops Extremities: less than 2 second capillary refill, no joint deformities, effusion, or inflammation Neuro Exam: alert & oriented x 3 with fluent speech, no focal motor/sensory deficits, gait normal, reflexes normal and symmetric Skin: skin color, texture, turgor are normal, no rashes or significant lesions ASSESSMENT AND PLAN: (Z00.00) Routine general medical examination at a health care facility (primary encounter diagnosis) Plan: age appropriate anticipatory guidance and health maintenance addressed (E03.9) Acquired hypothyroidism Plan: TSH, T4, FREE, T3, FREE, THYROID ANTIBODY AND TPO ANTIBODY (K21.00) Gastroesophageal reflux disease with esophagitis without hemorrhage Plan: BASIC METABOLIC PANEL (K58.2) Irritable bowel syndrome with both constipation and diarrhea Plan: stable (K63.8219) Small intestinal bacterial overgrowth Plan: stable (G43.101) Migraine with aura and with status migrainosus, not intractable Plan: Rizatriptan Benzoate 10 MG Oral Tablet Disintegrating (Maxalt-DIVERSIONAL THERAPIST) (J31.0) Chronic rhinitis Plan: Fluticasone Propionate 50 MCG/ACT Nasal Suspension (Flonase) Follow up in 1 year(s). No other complaints were offered at this time. Juan Carlos Cool MD documented in this encounter Nursing Notes * Joyce Suresh LPN - 05/26/2023 7:46 AM EDT The patient has been properly identified by confirmation of name and date of . Chief Complaint Patient presents with Physical-Exam Pt here for cpe documented in this encounter Plan of Treatment Upcoming Encounters Date Type Department Care Team (Late st Contact Info) Description 05/26/2024 9:00 AM EDT Office Visit [facility] [address] [place] [address] Juan Carlos Cool MD [address] [place] [address] Pending Results Name Type Priority Associated Diagnoses [...] esophagitis without hemorrhage 05/26/2023 8:18 AM EDT Scheduled Orders Name Type Priority Associated Diagnoses Orde r Schedule TSH Lab Routine Acquired hypothyroidism Expected: 05/26/2023 (Approximate), Expires: 05/25/2024 T4, FREE Lab Routine Acquired hypothyroidism Expected: 05/26/2023 (Approximate), Expires: 05/25/2024 T3, FREE Lab Routine Acquired hypothyroidism Expected: 05/26/2023 (Approximate), Expires: 05/25/2024 THYROID ANTIBODY AND TPO ANTIBODY Lab Routine Acquired hypothyroidism Expected: 05/26/2023 (Approximate), Expires: 05/25/2024 BASIC METABOLIC PANEL Lab Routine Gastroesophageal reflux disease with esophagitis without hemorrhage Expected: 05/26/2023 (Approximate), Expires: 05/25/2024 Health Maintenance Due Date Last Done Comments [...] 03/12/2024 03/12/2023, 02/16, 10/18/2020, Additional history exists Diabetes Screening 06/12/2025 06/12/2022, 0 05/08/2022, 12/07/2018, Additional history exists Colonoscopy 05/08/2026 05/08/2016, 05/08/2016 [...] as of this encounter Visit Diagnoses Diagnosis Routine general medical examination at a health care facility- Primary Acquired hypothyroidism Unspecified hypothyroidism Gastroesophageal reflux disease with esophagitis without hemorrhage Irritable bowel syndrome with both constipation and diarrhea Small intestinal bacterial overgrowth Migraine variant Variants of migraine, not elsewhere classified, without mention of intractable migraine without mention of status migrainosus Migraine with aura and with status migrainosus, not intractable Migraine with aura, with intractable migraine, so stated, with status migrainosus Chronic rhinitis documented in this encounter Care Teams Mattress Finisher Relationship Specialty Start Date End Date Juan Carlos Cool MD [address] [place] [address] PCP - General Family Medicine 02/06/16 documented as of this encounter
--- OUTSIDE RECORDS SUMMARY | 2023-10-08 23:35 | External Medical Summary ---
Author Name Unknown Address Unknown Organization K01:[facility] [place] [address] [place] [address] Laboratory Report Ordering Provider Test Date Status FELIX MOYA 05/26/2023 08:18:22 Final Observation Date Value Abnormality Reference (Units ) Status Thyroperoxidase Ab [Units/volume] in Serum or Plasma by Immunoassay 05/26/2023 08:18:22 7.5 <34.0 (IU/mL) Final Thyroglobulin Ab 05/26/2023 08:18:22 14.1 <115.0 (IU/mL) Final Performing Location [facility] - [facility] [address] [place] [address]
--- OUTSIDE RECORDS SUMMARY | 2023-10-08 23:35 | External Medical Summary | Summary of Care ---
Author Name Unknown Organization [facility] Address [address] [facility] [place] [address] Phone [phone] Care Team Providers Care Offal Worker Name Role Phone Griffin Washington MD Primary Care Provider [phone] Reason for Visit * Reason Comments eRx-Medication Refill Encounter Details Date Type Department Care Team (Late st Contact Info) Description 07/21/2023 Refill Family Practice [facility] [address] [place] [id number] Griffin Washington MD [address] [place] [id number] Allergies Active Allergy Reactions Criticality Noted Date Comments Egg-Derived Products Neuro complications (Please comment) 06/07/2018 Headaches documented as of this encounter (statuses as of 07/21/2023) Medications Medication Sig Dispensed Refills Start Date End Date Status Cholecalciferol (VITAMIN D) 2000 units Capsule Take 1,000 Units by mouth daily. Active B Complex Capsule Take 1 Cap by mouth daily. Active Calcium 600 MG Tablet Take 1 Tablet by mouth in the morning and 1 Tablet at noon and 1 Tablet in the evening. Take with meals. Active Rizatriptan Benzoate 10 MG Oral Tablet Disintegrating ([employer]OCIATE DIRECT[employer] C[employer])Indicati ons:Migraine with aura and with status migrainosus, not intractable Take 1 Tablet by mouth as needed for Migraine. at onset of headache, may repeat every 2 hours. No more than 2 pills in 24 hours 20 Tablet 05/26/2023 Active Fluticasone Propionate 50 MCG/ACT Nasal Suspension (Flonase)Indications :Chronic rhinitis SPRAY 2 SPRAYS INTO EACH NOSTRIL EVERY DAY 3 Each 2 05/26/2023 Active Sucralfate 1 GM Oral Tablet (Carafate) Take 1 Tablet by mouth every evening. 90 Tablet 3 05/26/2023 Active Levothyroxine Sodium 50 MCG Oral Tablet (Levoxyl) TAKE 1 TABLET BY MOUTH EVERY DAY IN THE MORNING 90 Tablet 3 07/21/2023 Active Levothyroxine Sodium 50 MCG Oral Tablet (Levoxyl) Take 1 Tablet by mouth in the morning. 90 Tablet 3 05/08/2022 4 Discontinued documented as of this encounter (statuses as of 07/21/2023) Active Problems Problem Noted Date Diagnosed Date Migraine variant 05/26/2023 Acquired hypothyroidism 04/30/2021 Small intestinal bacterial overgrowth 10/01/2016 Irritable bowel syndrome wit h both constipation and diarrhea 04/24/2016 Gastroesophageal reflux disease with esophagitis 03/27/2016 documented as of this encounter (statuses as of 07/21/2023) Resolved Problems Problem Noted Date Diagnosed Date [...] as of this encounter (statuses as of 07/21/2023) Immunizations Name Administration Dates Next Due COVID-19 mRNA, LNP-s, No Pre serve, 2-Dose Series ([employer]) 01/21/2021,05/22/2020,04/29/2020 DTaP Dipth/Tet/Acell Pertussis (Infanrix), Peds 12/04/2009 [...] on file documented as of this encounter Miscellaneous Notes * Telephone Encounter - [facility] - 07/21/2023 3:54 PM EDTSigned Prescriptions: Disp Refills Levothyroxine Sodium 50 MCG Oral Tablet (L*90 Tab*3 Sig: TAKE 1 TABLET BY MOUTH EVERY DAY IN THE MORNINGAuthorizing Provider: GRIFFIN WASHINGTON User: VIRGINIA VENTURA documented in this encounter Plan of Treatment Upcoming Encounters Date Type Department Care Team (Late st Contact Info) Description 05/26/2024 9:00 AM EDT Office Visit Family [facility] [address] [place] [address] Griffin Washington MD [address] [place] [address] Health Maintenance Due Date Last Done Comments [...] Not on filedocumented as of this encounter Care Teams Offal Worker Relationship Specialty Start Date End Date Griffin Washington MD [address] [place] [address] PCP - General Family Medicine 02/06/16 documented as of this encounter
--- NOTE | 2023-10-09 00:08 | History & Physical Report ---
Date of Service October 09, 2023 Assessment & Plan (1) Diverticulitis of large intestine with complication: Plan: Complicated diverticulitis No sepsis for now GERD, stable on as needed sucralfate hypothyroidism, euthyroid as of last outpatient TSH GMF Strict n.p.o. for now Zosyn General Surgery consult Re: Complicated diverticulitis (ER provider already in touch with Dr. Brambila.) DVT phylaxis. SCDs Full code Patient requesting updates providers. Mr. Bienvenido Fontenot, contact #[phone]. Text document was generated using [employer] voice recognition software. It may contain grammatical or spelling errors. Kindly contact undersigned for clarification of any documentation item in question. History of Present Illness Chief Complaint: Abdominal pain Primary Care Provider: Juan Carlos Cool MD History obtained from patient, family, and records. Medical history significant for GERD, history of small intestine bacterial overgrowth as per records, hypothyroidism, gestational DM, migraine. 2 days ago, patient noted achy abdominal pain across her belly associated with nausea. Worsening discomfort noted yesterday. No fever, no chills. IV Zosyn administered at the ER for diverticulitis with microperforation. 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 Verified 11/18/22 09:23 egg Allergy Headache Verified 11/18/22 09:23 Home Medications Medication Instructions Recorded Confirmed Type cholecalciferol (vitamin D3) 50 50 mcg PO QPM 09/18/19 10/09/23 History mcg (2,000 unit) tablet fluticasone propionate 50 1 spray intranasal QAM 09/18/19 10/09/23 History mcg/actuation nasal spray,suspension pyridoxine (vitamin B6) 50 mg 50 mg PO QPM 09/18/19 10/09/23 History tablet biotin 800 mcg tablet 800 mcg PO QPM 06/15/22 10/09/23 History sucralfate 1 gram tablet (Carafate) 1 g PO TID PRN stomach cramping 09/14/22 10/09/23 History levothyroxine 50 mcg tablet 50 mcg PO QAM 09/23/22 10/09/23 History Past Med/Surg History Problem List (Updated 10/09/23 @ 02:33 by Jose Raul Hernandez MD) Diverticulitis of large intestine with complication Diverticulitis (Acute) Encounter for pre-operative examination Migraine Encounter for routine gynecological examination with Papanicolaou smear of cervix (Acute) Menorrhagia Medical History (Updated 10/09/23 @ 02:33 by Jose Raul Hernandez MD) GERD (gastroesophageal reflux disease) Hypothyroidism Hx of migraines Gestational diabetes hx-resolved Anemia Abnormal menses Cycles 25 days, bleeds 7 days but spots up to 14 days total. Genital herpes Patient states not correct / no history of outbreak Epidermal cyst pt unsure about this? Surgical History (Updated 10/20/22 @ 11:15 by Candy Bunn MD) H/O: hysterectomy robotic TLH, retains ovaries History of esophagogastroduodenoscopy (EGD) Hx of colonoscopy H/O tubal ligation H/O oral surgery Hx of section x3 Family History Aunt Breast cancer Mother Hypertension Son Celiac sprue Grandmother (Maternal) Osteoporosis Social History Smoking Status: Never smoker Second Hand Exposure: No; Do You Dip or Chew Tobacco: No; Hx Alcohol Use: No Hx Substance Use: No Preferred Language: Luxembourgish Communication Ability: Effective Clothing Designer Required: No Beliefs That Will Affect Care: None marital status: Current Living Situation: Spouse Other Information That Helps Us Care for You: No Feels Safe at Home: Yes Safety Concerns: Feels Safe At This Time Assistive Devices: Glasses Review of Systems Review of Systems: As per HPI, all other systems reviewed and negative Physical Exam Physical Exam: GENERAL: Comfortable, pleasant, no respiratory distress SKIN: Normal color, warm HEENT: Bespectacled, pink palpebral conjunctivae, no ptosis, dry buccal mucosa NECK : Supple, no tenderness CHEST : CTA, no tenderness HEART : RRR, no obvious murmurs ABDOMEN: Some distention, central abdominal tenderness EXTREMITIES : No LE swelling/tenderness, no other conspicuous deformities noted NEUROLOGIC : Coherent, no facial asymmetry, no other gross focality Results & Data Results & Data Vital Signs (Past 12 Hours) Vital Signs Temp Pulse Resp BP Pulse Ox O2 Del Method 10/08/23 22:33 66 14 109/64 98 Room Air 10/08/23 21:30 68 16 113/68 99 Room Air 10/08/23 21:00 68 20 117/66 100 Room Air 10/08/23 20:54 68 10/08/23 18:23 37.0 C 83 18 120/73 100 Room Air Laboratory Results Laboratory Results WBC 10.87 K/ul (4.8-10.8) H 10/08/23 18:42 RBC 4.98 M/uL (4.20-5.40) 10/08/23 18:42 Hgb 15.0 g/dl (12.0-16.0) 10/08/23 18:42 POC Hgb 15.0 g/dl (12.0-16.0) 10/08/23 19:44 Hct 45.0 % (37.0-47.0) 10/08/23 18:42 POC Hct 44 % (37-47) 10/08/23 19:44 MCV 90.4 fL (80.0-100.0) 10/08/23 18:42 MCH 30.1 pg (25.0-34.0) 10/08/23 18:42 MCHC 33.3 g/dL (32.0-36.0) 10/08/23 18:42 RDW Std Deviation 43.7 fL (36.4-46.3) 10/08/23 18:42 RDW Coeff of Adan 13.1 % (11.5-14.5) 10/08/23 18:42 Plt Count 212 K/uL (130-400) 10/08/23 18:42 MPV 9.8 fL (9.4-12.4) 10/08/23 18:42 Immature Gran % (Auto) 0.4 % 10/08/23 18:42 Neut % (Auto) 74.7 % 10/08/23 18:42 Lymph % (Auto) 11.8 % 10/08/23 18:42 [place] % (Auto) 11.9 % 10/08/23 18:42 Eos % (Auto) 0.6 % 10/08/23 18:42 Baso % (Auto) 0.6 % 10/08/23 18:42 Neut # (Auto) 8.14 K/uL (1.40-6.50) H 10/08/23 18:42 Lymph # (Auto) 1.28 K/uL (1.20-3.40) 10/08/23 18:42 [place] # (Auto) 1.29 K/uL (0.11-0.59) H 10/08/23 18:42 Eos # (Auto) 0.06 K/uL (0.00-0.50) 10/08/23 18:42 Baso # (Auto) 0.06 K/uL (0.00-0.20) 10/08/23 18:42 Immature Gran # (Auto) 0.04 K/uL (0.01-0.20) 10/08/23 18:42 POC Sodium 137 mmol/L (135-144) 10/08/23 19:44 Sodium 138 mmol/L (136-145) 10/08/23 Unknown POC Potassium 4.0 mmol/L (3.3-5.0) 10/08/23 19:44 Potassium 4.1 mmol/L (3.5-5.1) 10/08/23 Unknown POC Chloride 102 mmol/L (101-112) 10/08/23 19:44 Chloride 103 mmol/L (98-107) 10/08/23 Unknown Carbon Dioxide 28 mmol/L (21-32) 10/08/23 Unknown POC Total CO2 25 mmol/L (24-31) 10/08/23 19:44 Anion Gap 7 (3-11) 10/08/23 Unknown POC Anion Gap 15.0 mmol/L (16-25) L 10/08/23 19:44 POC BUN 10 mg/dl (7-18) 10/08/23 19:44 BUN 12 mg/dl (6-23) 10/08/23 Unknown Creatinine 0.86 mg/dl (0.6-1.2) 10/08/23 Unknown POC Creatinine 0.9 mg/dl (0.6-1.3) 10/08/23 19:44 Est Cr Clr Drug Dosing 69.8 ml/min 10/08/23 Unknown Est GFR ( Amer) 93.2 ml/min 10/08/23 Unknown Est GFR (Non-Af Amer) 80.4 ml/min 10/08/23 Unknown BUN/Creatinine Ratio 14.0 (10-20) 10/08/23 Unknown Glucose 97 mg/dl (70-99(Fasting)) 10/08/23 Unknown POC Glucose (other) 95 mg/dl (70-99) 10/08/23 19:44 Calcium 10.2 mg/dl (8.6-10.3) 10/08/23 Unknown POC Ioniz Calcium Leonila 1.19 mmol/l (1.12-1.32) 10/08/23 19:44 Total Bilirubin 0.7 mg/dl (0.2-1.0) 10/08/23 Unknown AST 12 U/L (13-39) L 10/08/23 Unknown ALT 14 U/L (7-52) 10/08/23 Unknown Alkaline Phosphatase 41 U/L (34-104) 10/08/23 Unknown Total Protein 7.0 gm/dl (6.0-8.3) 10/08/23 Unknown Albumin 4.5 gm/dl (3.4-5.0) 10/08/23 Unknown Globulin 2.5 gm/dl (2.5-4.0) 10/08/23 Unknown Albumin/Globulin Ratio 1.8 (0.9-2) 10/08/23 Unknown Lipase 18 U/L (11-82) 10/08/23 Unknown Urine Color Yellow 10/08/23 Unknown Urine Appearance Clear (Clear) 10/08/23 Unknown Urine pH 7.0 (4.5-7.5) 10/08/23 Unknown Ur Specific [place] > 1.045 (1.000-1.030) H 10/08/23 Unknown Urine Protein Trace (Negative) H 10/08/23 Unknown Urine Glucose (UA) Negative (Negative) 10/08/23 Unknown Urine Ketones 1+ (Negative) H 10/08/23 Unknown Urine Blood Negative (Negative) 10/08/23 Unknown Urine Nitrite Negative (Negative) 10/08/23 Unknown Urine Bilirubin Negative (Negative) 10/08/23 Unknown Urine Urobilinogen Negative (Negative) 10/08/23 Unknown Ur Leukocyte Esterase Negative (Negative) 10/08/23 Unknown Urine WBC (Auto) 0-5 /hpf (0-5) 10/08/23 Unknown Urine RBC (Auto) 3-5 /hpf (0-2) H 10/08/23 Unknown U Hyaline Cast (Auto) 0-2 /lpf (0-2) 10/08/23 Unknown U Epithel Cells (Auto) 0-2 /hpf (0-2) 10/08/23 Unknown Urine Bacteria (Auto) None Seen (None Seen) 10/08/23 Unknown Impressions Abdomen/Pelvis CT 10/08/23 18:25 Exam(s): CT ABDOMEN + PELVIS With Contrast IV Amt: 94ml optiray 320 EXAM: CT Abdomen and Pelvis With Intravenous Contrast CLINICAL HISTORY: Reason for exam: RIGHT ABDOMINAL PAIN. TECHNIQUE: Axial computed tomography images of the abdomen and pelvis with intravenous contrast. CTDI is 14.43 mGy and DLP is 697.8 mGy-cm. Automated exposure control was utilized for the study. A dose lowering technique was utilized adhering to the principles of ALARA. CONTRAST: Patient received 94ml optiray 320 of IV contrast COMPARISON: No relevant prior studies available. FINDINGS: Lung bases: Unremarkable. No mass. No consolidation. ABDOMEN: Liver: Unremarkable. No mass. Gallbladder and bile ducts: Unremarkable. No calcified stones. No ductal dilation. Pancreas: Unremarkable. No mass. No ductal dilation. Spleen: Unremarkable. No splenomegaly. Adrenals: Unremarkable. No mass. Kidneys and ureters: Unremarkable. No solid mass. No hydronephrosis. Stomach and bowel: Diffuse wall thickening of the proximal transverse colon with scattered diverticula and moderate mesenteric edema, characteristic of diverticulitis. Fluid-filled loops of distal small bowel. No evidence of obstruction. PELVIS: Appendix: The appendix is not visualized. Bladder: Unremarkable. No mass. Reproductive: Unremarkable as visualized. ABDOMEN and PELVIS: Intraperitoneal space: Small area of questionable free air best seen on series 2, image 42 which may represent small microperforation. No abscess. No significant fluid collection. Bones/joints: No acute fracture. No dislocation. Soft tissues: Unremarkable. Vasculature: Unremarkable. No abdominal aortic aneurysm. Lymph nodes: Unremarkable. No enlarged lymph nodes. IMPRESSION: 1. Diffuse wall thickening of the proximal transverse colon with scattered diverticula and moderate mesenteric edema, characteristic of diverticulitis. Small area of questionable free air best seen on series 2, image 42 which may represent small microperforation. No abscess Transverse colon mass cannot be entirely excluded, recommend follow-up after resolution Electronically signed by: Alexus Coley MD 10/08/23 22:37 PM
[2023-10-09] MEDS ORDERED: LORazepam 0.25 MG in SYRINGE 0.125 ML IV PRN (00:24)
[2023-10-09] MEDS: SODIUM CHLORIDE 0.9% 1,000 ML IV STA (00:26)
[2023-10-09] MEDS: MoRPHine SULFATE 4 MG/ML 1 ML CARP\\VIAL IV PRN (00:26)
[2023-10-09] MEDS: ACETAMINOPHEN 1,000 MG/100 ML VIAL IV PRN (04:58)
[2023-10-09] MEDS: PIPERACILLIN/TAZOBACTAM 4.5 GM/100 ML BAG IV SCH (06:01)
[2023-10-09] MEDS: SODIUM CHLORIDE 0.9% 1,000 ML IV SCH (06:02)
[2023-10-09 06:47] LABS: Basophils # (auto) 0.08 K/uL (0.00-0.20); Basophils % (auto) 0.7 %; Eosinophils # (auto) 0.11 K/uL (0.00-0.50); Hematocrit (blood only) 36.3 % (37.0-47.0); Hemoglobin 12.4 g/dl (12.0-16.0); Immature Granulocytes # (auto) 0.03 K/uL (0.01-0.20); Immature Granulocytes % (auto) 0.3 %; Lymphocytes # (auto) 1.26 K/uL (1.20-3.40); Lymphocytes % (auto) 11.5 %; Mean Corpuscular Hemoglobin 30.9 pg (25.0-34.0); Mean Corpuscular Hgb Conc 34.2 g/dL (32.0-36.0); Mean Corpuscular Volume 90.5 fL (80.0-100.0); Mean Platelet Volume 10.2 fL (9.4-12.4); Monocytes # (auto) 1.46 K/uL (0.11-0.59); Monocytes % (auto) 13.4 %; Neutrophils # (auto) 7.98 K/uL (1.40-6.50); Neutrophils % (auto) 73.1 %; Platelet Count 169 K/uL (130-400); RDW Coefficient of Variation 13.2 % (11.5-14.5); RDW Standard Deviation 43.8 fL (36.4-46.3); Red Blood Count 4.01 M/uL (4.20-5.40); White Blood Count 10.92 K/ul (4.8-10.8)
[2023-10-09 07:26] LABS: BUN Creatinine Ratio 11.6 (10-20); Calcium 8.3 mg/dl (8.6-10.3); Creatinine Clr Calc Pharmacy 69.8 ml/min; Est GFR (African American) 93.2 ml/min; Est GFR (Non-African American) 80.4 ml/min; Potassium 3.7 mmol/L (3.5-5.1)
[2023-10-09] MEDS: KETOROLAC TROMETHAMINE 15 MG/ML VIAL IV PRN (08:47)
[2023-10-09] MEDS: RIZATRIPTAN BENZOATE MLT 10 MG TAB PO PRN (12:09)
[2023-10-09] MEDS: PROMETHAZINE 6.25 MG/50.25 ML BAG IV PRN (18:36)
--- NOTE | 2023-10-09 18:36 | Hospitalist Progress Note ---
Date of Service October 09, 2023 Assessment & Plan (1) Diverticulitis of large intestine with complication: Plan: Complicated diverticulitis No sepsis for now CT abd/pelvis: 1. Diffuse wall thickening of the proximal transverse colon with scattered diverticula and moderate mesenteric edema, characteristic of diverticulitis. Small area of questionable free air best seen on series 2, image 42 which may represent small microperforation. No abscess Transverse colon mass cannot be entirely excluded, recommend follow-up after resolution Continue IV Zosyn day #1 N.p.o., IV fluids Blood cultures ordered General Surgery consulted GERD, stable on as needed sucralfate hypothyroidism, euthyroid as of last outpatient TSH DVT phylaxis. SCDs Full code Admission and Anticipated Discharge Date Admission Date: October 09, 2023 Subjective Follow-up for acute diverticulitis with microperforation, etc. Seen resting in bed, sleeping, easily awakened States she feels tired, has right upper quadrant pain but seems to be improved compared to last evening Still having some nausea No chest pain, shortness of breath, palpitations, dizziness No other new symptoms Review of Systems Review of Systems: all noted and negative except for above Physical Exam Physical Exam: General- oriented x 3, not in distress, speaks in sentences with no effort or accessory muscle use Eyes- anicteric Neck- no JVD Lungs- clear breath sounds bilaterally, no rales/wheezes Heart- normal rate, regular rhythm; no murmurs Abdomen- normal bowel sounds, nondistended, soft, (+) mild tenderness RUQ Extremities- no pretibial edema, no calf tenderness Neuro- alert, oriented x 3; no gross focal neurologic deficits Skin- warm & dry Results & Data Results & Data Vital Signs (Past 12 Hours) Vital Signs Temp Pulse Resp BP Pulse Ox O2 Del Method 10/09/23 15:32 36.3 C L 75 14 96/62 L 96 Room Air 10/09/23 07:22 36.8 C 76 16 94/59 L 95 Room Air all noted and reviewed including below
[2023-10-09 19:24] VITALS: RESP 16
[2023-10-09] MEDS: FAMOTIDINE 20MG IV PUSH 20 MG/5 ML SYR IV STA (20:02)
--- NOTE | 2023-10-09 20:06 | Surgery Consultation ---
Date of Consultation October 09, 2023 Assessment & Plan (1) Diverticulitis of large intestine without complication: and with microperforation noted on CT. Patient admitted to medicine for conservative management. She is afebrile with stable VS and mild leukocytosis. Continue NPO for now Continue with IV abx, currently on Zosyn Ambulate as tolerated May have chemical DVT ppx. SCDs while in bed F/U am labs Will see in the am Radiology read of CT from 10/08/23 mentions possible mass can not be excluded and further encouraging a post resolution colonoscopy 6-8 weeks after discharge. History of Present Illness Reason for Consultation: diverticulitis Attending Physician: Karsten Murguia MD History of Present Illness Michelle is a 48F with prior h/o hysterectomy without oophorectomy and subtle GI issues including the discovery of small bowel bacterial overload some time ago, self diagnosed celiacs and alternating bowel habits that is her usual baseline. She states she began having mid to RLQ abdominal pain on Wednesday night that worsened by . The pain was significant all day yesterday and into the evening causing her to present to the ED. In the ED she was afebrile with stable vital signs, mild leukocytosis to 10.[address] A/P performed 10/08/23 revealed an uncomplicated transverse colon diverticulitis with microperforation without abscess formation. She has been admitted for conservative management and general surgery has been consulted. Upon evaluation this am, she denies noting any other associated symptoms including any notable changes in her usual bowel habits, bloody stools, vomiting, F/C. She admits to having a little nausea yesterday which has been resolved since. She states her abdominal pain is significantly improved and in fact she now is pain free with just lying in bed. She had a colonoscopy 7 years ago finding the fecal overload. Her brother was recently diagnosed with Crohn's disease in his 30's. Allergies Allergy/AdvReac Type Severity Reaction Status Date / Time strawberry Allergy Intermediate hives Verified 11/18/22 09:23 No Known Drug Allergies Allergy Unknown . Verified 11/18/22 09:23 egg Allergy Headache Verified 11/18/22 09:23 Home Medications Medication Instructions Recorded Confirmed Type cholecalciferol (vitamin D3) 50 50 mcg PO QPM 09/18/19 10/09/23 History mcg (2,000 unit) tablet fluticasone propionate 50 1 spray intranasal QAM 09/18/19 10/09/23 History mcg/actuation nasal spray,suspension pyridoxine (vitamin B6) 50 mg 50 mg PO QPM 09/18/19 10/09/23 History tablet biotin 800 mcg tablet 800 mcg PO QPM 06/15/22 10/09/23 History sucralfate 1 gram tablet (Carafate) 1 g PO TID PRN stomach cramping 09/14/22 10/09/23 History levothyroxine 50 mcg tablet 50 mcg PO QAM 09/23/22 10/09/23 History Patient History Medical History GERD (gastroesophageal reflux disease) Hypothyroidism Hx of migraines Gestational diabetes hx-resolved Anemia Abnormal menses Cycles 25 days, bleeds 7 days but spots up to 14 days total. Genital herpes Patient states not correct / no history of outbreak Epidermal cyst pt unsure about this? 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 Beliefs That Will Affect Care: None marital status: Current Living Situation: Spouse Other Information That Helps Us Care for You: No Feels Safe at Home: Yes Safety Concerns: Feels Safe At This Time Assistive Devices: Glasses Review of Systems Review of Systems: As described in HPI above Physical Exam Constitutional: average body habitus and healthy appearing; not ill appearing, not disheveled, not in distress and not diaphoretic Respiratory: normal respiratory effort; no respiratory distress, no labored breathing and does not use accessory muscles Gastrointestinal (Abdomen): Inspection/Auscultation: abdomen not distended and no abdominal edema Percussion/Palpation: + abdomen tender (diffusely TTP without peritonitis, greatest epigastric and right quadrants), + guarding (voluntary) and abdomen soft; abdomen not rigid Skin: normal turgor; no jaundice and no mottling Results & Data Vital Signs (Past 12 Hours) Vital Signs Temp Pulse Resp BP Pulse Ox O2 Del Method 10/09/23 19:24 36.7 C 71 16 99/64 L 97 Room Air 10/09/23 15:32 36.3 C L 75 14 96/62 L 96 Room Air Laboratory Results WBC 10.9 Diagnostic Findings I have reviewed her CT imaging. No evidence of complicated diverticulitis at th is time without the presence of current abscess, phlegmon or greater than a microperforation. PG Care Time/CCT Total # of Minutes Spent Total Time Spent with Patient: Total time spent is greater than 50% in coordination of care (as documented) at patient's floor/unit and/or counseling patient: Coding Level of Care Code 08931 IN/OBS CONSULT LVL 3,45M Medical Decision Making Moderate Complexity Diagnoses Diverticulitis of large intestine without complication K57.32
[2023-10-09] MEDS: ONDANSETRON INJ 2 MG/ML 2 ML VIAL IV STA (21:48)
[2023-10-10] MEDS: FAMOTIDINE 20MG IV PUSH 20 MG/5 ML SYR IV SCH (07:44)
[2023-10-10] MEDS: ondansetron HCL 6 MG in DEXTROSE 5% 50 ML IV PRN (08:31)
--- NOTE | 2023-10-10 09:41 | Surgery Progress Note ---
<Statement entered by Johnathan Madden, - 10/10/23 10:01> I have seen and examined this patient this am. I agree with this plan Date of Service October 10, 2023 Assessment & Plan (1) Diverticulitis of large intestine with complication: Plan: Patient seen and examined with Dr. Madden. No new morning labs, labs ordered. Vital signs stable. Nausea from last evening has resolved. She is improved today. Passing flatus, no BM. Will allow sips and chips today. If tolerates, then can consider clears for dinner. IV abx per primary team. No plans for surgical intervention. Admission and Anticipated Discharge Date Admission Date: October 09, 2023 Subjective Michelle is resting in bed, she reports that she is feeling much improved from yesterday. She did have 2 episodes of vomiting last night. She states that combo of Pepcid and Zofran helped greatly. She denies any nausea this AM. Reports that migraine has resolved. She is passing flatus, but no BMs. Review of Systems Constitutional: as per Subjective / HPI; no fever and no chills Respiratory: no chest congestion, no dyspnea and no dyspnea on exertion Gastrointestinal: + abdominal pain (improved); no nausea a nd no vomiting Physical Exam Constitutional: WD/WN, vitals as above not ill appearing Respiratory: normal respiratory effort; no respiratory distress and no labored breathing Gastrointestinal (Abdomen): Inspection/Auscultation: abdomen not distended and no abdominal edema Percussion/Palpation: + abdomen tender (diffusely TTP without peritonitis, greatest epigastric and right quadrants), + guarding (voluntary) and abdomen soft; abdomen not rigid Skin: normal turgor; no jaundice and no mottling Results & Data Vital Signs (Past 12 Hours) Vital Signs Temp Pulse Resp BP Pulse Ox O2 Del Method 10/10/23 07:34 36.7 C 79 16 104/67 96 Room Air PG Care Time/CCT Total # of Minutes Spent Total Time Spent with Patient: Total time spent is greater than 50% in coordination of care (as documented) at patient's floor/unit and/or counseling patient: Coding Level of Care Code 22327 SUB INP/OBS CARE 2/35MIN Diagnoses Diverticulitis of large intestine with complication K57.32
[2023-10-10 10:25] LABS: Eosinophils # (auto) 0.05 K/uL (0.00-0.50); Eosinophils % (auto) 0.5 %; Hematocrit (blood only) 38.6 % (37.0-47.0); Hemoglobin 12.8 g/dl (12.0-16.0); Immature Granulocytes # (auto) 0.03 K/uL (0.01-0.20); Immature Granulocytes % (auto) 0.3 %; Lymphocytes # (auto) 1.82 K/uL (1.20-3.40); Lymphocytes % (auto) 18.9 %; Mean Corpuscular Hemoglobin 30.9 pg (25.0-34.0); Mean Corpuscular Hgb Conc 33.2 g/dL (32.0-36.0); Mean Corpuscular Volume 93.2 fL (80.0-100.0); Mean Platelet Volume 10.3 fL (9.4-12.4); Monocytes # (auto) 0.95 K/uL (0.11-0.59); Monocytes % (auto) 9.9 %; Neutrophils # (auto) 6.68 K/uL (1.40-6.50); Neutrophils % (auto) 69.4 %; Platelet Count 195 K/uL (130-400); RDW Coefficient of Variation 13.2 % (11.5-14.5); RDW Standard Deviation 44.9 fL (36.4-46.3); Red Blood Count 4.14 M/uL (4.20-5.40); White Blood Count 9.63 K/ul (4.8-10.8)
[2023-10-10 10:43] LABS: BUN Creatinine Ratio 15.6 (10-20); Calcium 8.3 mg/dl (8.6-10.3); Creatinine Clr Calc Pharmacy 62.6 ml/min; Est GFR (African American) 81.6 ml/min; Est GFR (Non-African American) 70.4 ml/min; Potassium 3.8 mmol/L (3.5-5.1)
--- NOTE | 2023-10-10 15:36 | Hospitalist Progress Note ---
Date of Service October 10, 2023 Assessment & Plan (1) Diverticulitis of large intestine with complication: Plan: Complicated diverticulitis No sepsis for now CT abd/pelvis: 1. Diffuse wall thickening of the proximal transverse colon with scattered diverticula and moderate mesenteric edema, characteristic of diverticulitis. Small area of questionable free air best seen on series 2, image 42 which may represent small microperforation. No abscess Transverse colon mass cannot be entirely excluded, recommend follow-up after resolution Continue IV Zosyn day #1 N.p.o., IV fluids Blood cultures ordered General Surgery consulted 10/09 improving sips/chips ordered, if patient does well, will advance to clear liquids for dinner continue IV Zosyn Gen Surg on board GERD, stable on as needed sucralfate hypothyroidism, euthyroid as of last outpatient TSH DVT phylaxis. SCDs Full code Admission and Anticipated Discharge Date Admission Date: October 09, 2023 Subjective ff up for acute diverticulitis with perforation, etc seen resting in bed, comfortable states she feels improved today less abdominal pain, nausea no fever/chills no chest pain, dyspnea, palpitations, dizziness has headache from migraine no other new symptoms Review of Systems Review of Systems: all noted and negative except for above Physical Exam Physical Exam: General- oriented x 3, not in distress, speaks in sentences with no effort or accessory muscle use Eyes- anicteric Neck- no JVD Lungs- clear breath sounds bilaterally, no crackles/wheezing Heart- normal rate, regular rhythm; no murmurs Abdomen- normal bowel sounds, nondistended, soft, nontender Extremities- no pretibial edema, no calf tenderness Neuro- alert, oriented x 3; no gross focal neurologic deficits Skin- warm & dry Results & Data Results & Data Vital Signs (Past 12 Hours) Vital Signs Temp Pulse Resp BP BP Pulse Ox O2 Del Method 10/10/23 15:22 36.5 C 81 16 101/57 L 96 Room Air 10/10/23 07:34 36.7 C 79 16 104/67 96 Room Air all noted and reviewed including below
[2023-10-10] MEDS: FLUTICASONE PROPIONATE NA SPR 16 GM BTL SCH (22:13)
[2023-10-11] MEDS: SUCRALFATE 1 GM TAB PO PRN (05:20)
[2023-10-11] MEDS: LEVOTHYROXINE SODIUM 50 MCG TABLET PO SCH (06:11)
[2023-10-11] MEDS: FAMOTIDINE 20MG IV PUSH 20 MG/5 ML SYR IV ONE (06:11)
[2023-10-11 07:35] LABS: Basophils # (auto) 0.07 K/uL (0.00-0.20); Basophils % (auto) 1.4 %; Eosinophils # (auto) 0.07 K/uL (0.00-0.50); Eosinophils % (auto) 1.4 %; Hematocrit (blood only) 34.9 % (37.0-47.0); Hemoglobin 11.7 g/dl (12.0-16.0); Immature Granulocytes # (auto) 0.02 K/uL (0.01-0.20); Immature Granulocytes % (auto) 0.4 %; Lymphocytes # (auto) 1.29 K/uL (1.20-3.40); Mean Corpuscular Hgb Conc 33.5 g/dL (32.0-36.0); Mean Corpuscular Volume 92.3 fL (80.0-100.0); Mean Platelet Volume 10.5 fL (9.4-12.4); Monocytes # (auto) 0.55 K/uL (0.11-0.59); Monocytes % (auto) 11.1 %; Neutrophils # (auto) 2.97 K/uL (1.40-6.50); Neutrophils % (auto) 59.7 %; Platelet Count 174 K/uL (130-400); RDW Standard Deviation 44.4 fL (36.4-46.3); Red Blood Count 3.78 M/uL (4.20-5.40); White Blood Count 4.97 K/ul (4.8-10.8)
[2023-10-11 07:50] LABS: Calcium 7.9 mg/dl (8.6-10.3); Creatinine Clr Calc Pharmacy 65.3 ml/min; Est GFR (African American) 85.9 ml/min; Est GFR (Non-African American) 74.2 ml/min; Potassium 3.7 mmol/L (3.5-5.1)
--- NOTE | 2023-10-11 10:04 | Surgery Progress Note ---
Date of Service October 11, 2023 Assessment & Plan (1) Diverticulitis of large intestine without complication: Plan: Pt here w/ diverticulitis WBC 4.9. Pt afebrile Pain controlled. No n/v. Having + bowel function Tolerating clears, will advance to low fiber today If continues to do well, anticipate she may be discharged to home today Will need output follow up with GI in 6-8 weeks for outpt colonoscopy Complete course of PO abx upon transition to home Admission and Anticipated Discharge Date Admission Date: October 09, 2023 Supervising Physician Co-Signing Physician Notes I have seen and examined this patient and I agree with this plan Subjective Patient reports feeling well. Pain controlled. + BMs this AM, some crampiness with it but overall well. Tolerating clears without issues. Physical Exam Physical Exam: awake/alert, no distress Gastrointestinal (Abdomen): Percussion/Palpation: abdomen soft Results & Data Vital Signs (Past 12 Hours) Vital Signs Temp Pulse Resp BP Pulse Ox O2 Del Method 10/11/23 07:49 98.2 F 77 16 98/59 L 98 Room Air PG Care Time/CCT Total # of Minutes Spent Total Time Spent with Patient: Total time spent is greater than 50% in coordination of care (as documented) at patient's floor/unit and/or counseling patient: Coding Level of Care Code 07872 SUB INP/OBS CARE 03/11MIN Diagnoses Diverticulitis of large intestine without complication K57.32
--- NOTE | 2023-10-11 17:53 | Hospitalist Progress Note ---
Date of Service October 11, 2023 delayed entry date of service noted above Assessment & Plan (1) Diverticulitis of large intestine with complication: Plan: Complicated diverticulitis No sepsis for now CT abd/pelvis: 1. Diffuse wall thickening of the proximal transverse colon with scattered diverticula and moderate mesenteric edema, characteristic of diverticulitis. Small area of questionable free air best seen on series 2, image 42 which may represent small microperforation. No abscess Transverse colon mass cannot be entirely excluded, recommend follow-up after resolution Continue IV Zosyn day #1 N.p.o., IV fluids Blood cultures ordered General Surgery consulted 10/09 improving sips/chips ordered, if patient does well, will advance to clear liquids for dinner continue IV Zosyn Gen Surg on board 10/10 (+) diarrhea check stool panel and PCR GERD, stable on as needed sucralfate hypothyroidism, euthyroid as of last outpatient TSH DVT phylaxis. SCDs Full code Admission and Anticipated Discharge Date Admission Date: October 09, 2023 Subjective ff up for acute diverticulitis with microperf etc seen resting in bed, comfortable states she feels better overall no abdominal pain (+) diarrhea- 9x, no melena/hematochezia etc no other symptoms Review of Systems Review of Systems: all noted and negative except for above Physical Exam Physical Exam: General- oriented x 3, not in distress, speaks in sentences with no effort or accessory muscle use Eyes- anicteric Neck- no JVD Lungs- clear breath sounds bilaterally, no rales/wheezes Heart- normal rate, regular rhythm; no murmurs Abdomen- normal bowel sounds, nondistended, soft, nontender Extremities- no pretibial edema, no calf tenderness Neuro- alert, oriented x 3; no gross focal neurologic deficits Skin- warm & dry Results & Data Results & Data Vital Signs (Past 12 Hours) Vital Signs Temp Pulse Pulse Resp BP BP Pulse Ox 10/11/23 15:10 37.0 C 67 16 96/58 L 96 10/11/23 11:33 36.7 C 70 16 102/60 99 10/11/23 07:49 36.8 C 77 16 98/59 L 98 10/11/23 07:40 O2 Del Method 10/11/23 15:10 Room Air 10/11/23 11:33 Room Air 10/11/23 07:49 Room Air 10/11/23 07:40 Room Air all noted and reviewed including below
[2023-10-11] MEDS: FAMOTIDINE 20MG IV PUSH 20 MG/5 ML SYR IV SCH (19:55)
[2023-10-11 22:31] VITALS: PULSE 63
[2023-10-12 06:15] LABS: Basophils # (auto) 0.05 K/uL (0.00-0.20); Basophils % (auto) 1.2 %; Eosinophils # (auto) 0.08 K/uL (0.00-0.50); Hemoglobin 11.5 g/dl (12.0-16.0); Immature Granulocytes # (auto) 0.01 K/uL (0.01-0.20); Immature Granulocytes % (auto) 0.2 %; Lymphocytes # (auto) 1.43 K/uL (1.20-3.40); Lymphocytes % (auto) 35.2 %; Mean Corpuscular Hemoglobin 30.8 pg (25.0-34.0); Mean Corpuscular Hgb Conc 33.8 g/dL (32.0-36.0); Mean Corpuscular Volume 91.2 fL (80.0-100.0); Mean Platelet Volume 10.5 fL (9.4-12.4); Monocytes # (auto) 0.53 K/uL (0.11-0.59); Monocytes % (auto) 13.1 %; Neutrophils # (auto) 1.96 K/uL (1.40-6.50); Neutrophils % (auto) 48.3 %; Platelet Count 166 K/uL (130-400); RDW Coefficient of Variation 12.9 % (11.5-14.5); RDW Standard Deviation 43.1 fL (36.4-46.3); Red Blood Count 3.73 M/uL (4.20-5.40); White Blood Count 4.06 K/ul (4.8-10.8)
[2023-10-12 06:47] LABS: BUN Creatinine Ratio 10.8 (10-20); Calcium 7.8 mg/dl (8.6-10.3); Creatinine Clr Calc Pharmacy 64.6 ml/min; Est GFR (African American) 84.8 ml/min; Est GFR (Non-African American) 73.2 ml/min; Potassium 3.6 mmol/L (3.5-5.1)
[2023-10-12 07:15] VITALS: TEMP 98.8; O2SAT 96
[2023-10-12 07:51] LABS: Adenovirus F 40/41 PCR Not Detected (NotDetected); Astrovirus PCR Not Detected (NotDetected); Campylobacter PCR Not Detected (NotDetected); Cryptosporidium PCR Not Detected (NotDetected); Cyclospora cayetanensis PCR Not Detected (NotDetected); Entamoeba histolytica PCR Not Detected (NotDetected); Enteroaggregative E.coli(EAEC) Not Detected (NotDetected); Enteropathogenic E.coli (EPEC) Not Detected (NotDetected); Enterotoxigenic E.coli (ETEC) Not Detected (NotDetected); Giardia lamblia PCR Not Detected (NotDetected); Norovirus GI/GII PCR Not Detected (NotDetected); Plesiomonas shigelloides PCR Not Detected (NotDetected); Rotavirus A PCR Not Detected (NotDetected); Salmonella PCR Not Detected (NotDetected); Sapovirus PCR Not Detected (NotDetected); Shiga-like Toxin E.coli (STEC) Not Detected (NotDetected); Shigella/Enteroinvasive E.coli Not Detected (NotDetected); Vibrio cholerae PCR Not Detected (NotDetected); Vibrio species PCR Not Detected (NotDetected); Yersinia enterocolitica PCR Not Detected (NotDetected)
--- NOTE | 2023-10-12 12:00 | Discharge Summary ---
Discharge Summary Date of Service October 12, 2023 Principal Dx & Hospital Course #1 = Principal Diagnosis (1) Diverticulitis of large intestine with complication: Acute Diverticulitis with Microperforation did not meet criteria for sepsis CT abd/pelvis: 1. Diffuse wall thickening of the proximal transverse colon with scattered diverticula and moderate mesenteric edema, characteristic of diverticulitis. Small area of questionable free air best seen on series 2, image 42 which may represent small microperforation. No abscess Transverse colon mass cannot be entirely excluded, recommend follow-up after resolution General Surgery consulted conservative management recommended given IV Zosyn x 3 days bowel rest gradually improved diet advanced to soft, tolerating well had diarrhea the day before discharge, C diff and stool panel negative, resolved discharge on: Augmentin 875mg BID x 11 more days Probiotics x 1 month Colonoscopy in 6-8 weeks please refer to GI GERD, stable on as needed sucralfate hypothyroidism, euthyroid as of last outpatient TSH Disposition d/c home ff up with PCP Pin 1 week GI for colonoscopy in 6-8 weeks Notes For Next Care Provider Medication Changes From Visit Augmentin 875mg BID x 11 days Probiotics Admission HPI Per Admitting Provider History obtained from patient, family, and records. Medical history significant for GERD, history of small intestine bacterial overgrowth as per records, hypothyroidism, gestational DM, migraine. 2 days ago, patient noted achy abdominal pain across her belly associated with nausea. Worsening discomfort noted yesterday. No fever, no chills. IV Zosyn administered at the ER for diverticulitis with microperforation. Medical History as above Normal colonoscopy from 2017 Surgical History : Hysterectomy, section, BTL Family History : Crohn's disease, celiac disease, breast cancer Personal/Social history : Non-smoker, no EtOH intake, civil project engineer Admission Exam Per Admitting Provider GENERAL: Comfortable, pleasant, no respiratory distress SKIN: Normal color, warm HEENT: Bespectacled, pink palpebral conjunctivae, no ptosis, dry buccal mucosa NECK : Supple, no tenderness CHEST : CTA, no tenderness HEART : RRR, no obvious murmurs ABDOMEN: Some distention, central abdominal tenderness EXTREMITIES : No LE swelling/tenderness, no other conspicuous deformities noted NEUROLOGIC : Coherent, no facial asymmetry, no other gross focality Discharge Exam General- oriented x 3, not in distress, speaks in sentences with no effort or accessory muscle use Eyes- anicteric Neck- no JVD Lungs- clear breath sounds bilaterally, no rales/wheezes Heart- normal rate, regular rhythm; no murmurs Abdomen- normal bowel sounds, nondistended, soft, nontender Extremities- no pretibial edema, no calf tenderness Neuro- alert, oriented x 3; no gross focal neurologic deficits Skin- warm & dry Updated Medication List Medication Instructions Recorded Confirmed Type cholecalciferol (vitamin D3) 50 50 mcg PO QPM 09/18/19 10/09/23 History mcg (2,000 unit) tablet fluticasone propionate 50 1 spray intranasal QAM 09/18/19 10/09/23 History mcg/actuation nasal spray,suspension pyridoxine (vitamin B6) 50 mg 50 mg PO QPM 09/18/19 10/09/23 History tablet biotin 800 mcg tablet 800 mcg PO QPM 06/15/22 10/09/23 History sucralfate 1 gram tablet (Carafate) 1 g PO TID PRN stomach cramping 09/14/22 10/09/23 History levothyroxine 50 mcg tablet 50 mcg PO QAM 09/23/22 10/09/23 History amoxicillin 875 mg-potassium 1 tab PO BID 11 days #22 tabs 10/12/23 Rx clavulanate 125 mg tablet Hospital Stay Data Consultations 10/08/23 23:55 ED Decision to Admit Stat 10/09/23 00:24 Consult General Surgery Routine Diagnostic Imagining Performed Laboratory Results WBC 4.06 K/ul (4.8-10.8) L 10/12/23 05:41 RBC 3.73 M/uL (4.20-5.40) L 10/12/23 05:41 Hgb 11.5 g/dl (12.0-16.0) L 10/12/23 05:41 POC Hgb 15.0 g/dl (12.0-16.0) 10/08/23 19:44 Hct 34.0 % (37.0-47.0) L 10/12/23 05:41 POC Hct 44 % (37-47) 10/08/23 19:44 MCV 91.2 fL (80.0-100.0) 10/12/23 05:41 MCH 30.8 pg (25.0-34.0) 10/12/23 05:41 MCHC 33.8 g/dL (32.0-36.0) 10/12/23 05:41 RDW Std Deviation 43.1 fL (36.4-46.3) 10/12/23 05:41 RDW Coeff of Adan 12.9 % (11.5-14.5) 10/12/23 05:41 Plt Count 166 K/uL (130-400) 10/12/23 05:41 MPV 10.5 fL (9.4-12.4) 10/12/23 05:41 Immature Gran % (Auto) 0.2 % 10/12/23 05:41 Neut % (Auto) 48.3 % 10/12/23 05:41 Lymph % (Auto) 35.2 % 10/12/23 05:41 Rolette % (Auto) 13.1 % 10/12/23 05:41 Eos % (Auto) 2.0 % 10/12/23 05:41 Baso % (Auto) 1.2 % 10/12/23 05:41 Neut # (Auto) 1.96 K/uL (1.40-6.50) 10/12/23 05:41 Lymph # (Auto) 1.43 K/uL (1.20-3.40) 10/12/23 05:41 Rolette # (Auto) 0.53 K/uL (0.11-0.59) 10/12/23 05:41 Eos # (Auto) 0.08 K/uL (0.00-0.50) 10/12/23 05:41 Baso # (Auto) 0.05 K/uL (0.00-0.20) 10/12/23 05:41 Immature Gran # (Auto) 0.01 K/uL (0.01-0.20) 10/12/23 05:41 POC Sodium 137 mmol/L (135-144) 10/08/23 19:44 Sodium 140 mmol/L (136-145) 10/12/23 05:41 POC Potassium 4.0 mmol/L (3.3-5.0) 10/08/23 19:44 Potassium 3.6 mmol/L (3.5-5.1) 10/12/23 05:41 POC Chloride 102 mmol/L (101-112) 10/08/23 19:44 Chloride 110 mmol/L (98-107) H 10/12/23 05:41 Carbon Dioxide 24 mmol/L (21-32) 10/12/23 05:41 POC Total CO2 25 mmol/L (24-31) 10/08/23 19:44 Anion Gap 6 (3-11) 10/12/23 05:41 POC Anion Gap 15.0 mmol/L (16-25) L 10/08/23 19:44 POC BUN 10 mg/dl (7-18) 10/08/23 19:44 BUN 10 mg/dl (6-23) 10/12/23 05:41 Creatinine 0.93 mg/dl (0.6-1.2) 10/12/23 05:41 POC Creatinine 0.9 mg/dl (0.6-1.3) 10/08/23 19:44 Est Cr Clr Drug Dosing 64.6 ml/min 10/12/23 05:41 Est GFR ( Amer) 84.8 ml/min 10/12/23 05:41 Est GFR (Non-Af Amer) 73.2 ml/min 10/12/23 05:41 BUN/Creatinine Ratio 10.8 (10-20) 10/12/23 05:41 Glucose 97 mg/dl (70-99(Fasting)) 10/12/23 05:41 POC Glucose (other) 95 mg/dl (70-99) 10/08/23 19:44 Calcium 7.8 mg/dl (8.6-10.3) L 10/12/23 05:41 POC Ioniz Calcium Leonila 1.19 mmol/l (1.12-1.32) 10/08/23 19:44 Total Bilirubin 0.7 mg/dl (0.2-1.0) 10/08/23 Unknown AST 12 U/L (13-39) L 10/08/23 Unknown ALT 14 U/L (7-52) 10/08/23 Unknown Alkaline Phosphatase 41 U/L (34-104) 10/08/23 Unknown Total Protein 7.0 gm/dl (6.0-8.3) 10/08/23 Unknown Albumin 4.5 gm/dl (3.4-5.0) 10/08/23 Unknown Globulin 2.5 gm/dl (2.5-4.0) 10/08/23 Unknown Albumin/Globulin Ratio 1.8 (0.9-2) 10/08/23 Unknown Lipase 18 U/L (11-82) 10/08/23 Unknown Urine Color Yellow 10/08/23 Unknown Urine Appearance Clear (Clear) 10/08/23 Unknown Urine pH 7.0 (4.5-7.5) 10/08/23 Unknown Ur Specific [place] > 1.045 (1.000-1.030) H 10/08/23 Unknown Urine Protein Trace (Negative) H 10/08/23 Unknown Urine Glucose (UA) Negative (Negative) 10/08/23 Unknown Urine Ketones 1+ (Negative) H 10/08/23 Unknown Urine Blood Negative (Negative) 10/08/23 Unknown Urine Nitrite Negative (Negative) 10/08/23 Unknown Urine Bilirubin Negative (Negative) 10/08/23 Unknown Urine Urobilinogen Negative (Negative) 10/08/23 Unknown Ur Leukocyte Esterase Negative (Negative) 10/08/23 Unknown Urine WBC (Auto) 0-5 /hpf (0-5) 10/08/23 Unknown Urine RBC (Auto) 3-5 /hpf (0-2) H 10/08/23 Unknown U Hyaline Cast (Auto) 0-2 /lpf (0-2) 10/08/23 Unknown U Epithel Cells (Auto) 0-2 /hpf (0-2) 10/08/23 Unknown Urine Bacteria (Auto) None Seen (None Seen) 10/08/23 Unknown Stl C. cayetanensis PCR Not Detected (NotDetected) 10/12/23 06:15 Stool Rotavirus A PCR Not Detected (NotDetected) 10/12/23 06:15 Stl Adenov F 40/41 PCR Not Detected (NotDetected) 10/12/23 06:15 Stool Astrovirus (PCR) Not Detected (NotDetected) 10/12/23 06:15 Stool Campylobacter PCR Not Detected (NotDetected) 10/12/23 06:15 Stl C. diff Tox B Gene Negative Cdiff Gene (Neg) 10/11/23 17:55 Stool Cryptosporidium PCR Not Detected (NotDetected) 10/12/23 06:15 Stl E.coli Shiga Tox PCR Not Detected (NotDetected) 10/12/23 06:15 Stool E coli O157 PCR Cancelled 10/11/23 17:55 Stl Enterotoxigenic E PCR Not Detected (NotDetected) 10/12/23 06:15 Stool EPEC (PCR) Not Detected (NotDetected) 10/12/23 06:15 Stool EAEC (PCR) Not Detected (NotDetected) 10/12/23 06:15 Stl E. histolytica PCR Not Detected (NotDetected) 10/12/23 06:15 Stool Giardia Lamblia PCR Not Detected (NotDetected) 10/12/23 06:15 Stool Salmonella PCR Not Detected (NotDetected) 10/12/23 06:15 Stool Sapovirus (PCR) Not Detected (NotDetected) 10/12/23 06:15 Stl P. shigelloides PCR Not Detected (NotDetected) 10/12/23 06:15 Stl Shigella/EIEC PCR Not Detected (NotDetected) 10/12/23 06:15 St Y.enterocolitica PCR Not Detected (NotDetected) 10/12/23 06:15 Stool Vibrio (PCR) Not Detected (NotDetected) 10/12/23 06:15 Stl Vibrio cholerae PCR Not Detected (NotDetected) 10/12/23 06:15 Stl Norovirus GI/GII PCR Not Detected (NotDetected) 10/12/23 06:15 Impressions Abdomen/Pelvis CT 10/08/23 18:25 Exam(s): CT ABDOMEN + PELVIS With Contrast IV Amt: 94ml optiray 320 EXAM: CT Abdomen and Pelvis With Intravenous Contrast CLINICAL HISTORY: Reason for exam: RIGHT ABDOMINAL PAIN. TECHNIQUE: Axial computed tomography images of the abdomen and pelvis with intravenous contrast. CTDI is 14.43 mGy and DLP is 697.8 mGy-cm. Automated exposure control was utilized for the study. A dose lowering technique was utilized adhering to the principles of ALARA. CONTRAST: Patient received 94ml optiray 320 of IV contrast COMPARISON: No relevant prior studies available. FINDINGS: Lung bases: Unremarkable. No mass. No consolidation. ABDOMEN: Liver: Unremarkable. No mass. Gallbladder and bile ducts: Unremarkable. No calcified stones. No ductal dilation. Pancreas: Unremarkable. No mass. No ductal dilation. Spleen: Unremarkable. No splenomegaly. Adrenals: Unremarkable. No mass. Kidneys and ureters: Unremarkable. No solid mass. No hydronephrosis. Stomach and bowel: Diffuse wall thickening of the proximal transverse colon with scattered diverticula and moderate mesenteric edema, characteristic of diverticulitis. Fluid-filled loops of distal small bowel. No evidence of obstruction. PELVIS: Appendix: The appendix is not visualized. Bladder: Unremarkable. No mass. Reproductive: Unremarkable as visualized. ABDOMEN and PELVIS: Intraperitoneal space: Small area of questionable free air best seen on series 2, image 42 which may represent small microperforation. No abscess. No significant fluid collection. Bones/joints: No acute fracture. No dislocation. Soft tissues: Unremarkable. Vasculature: Unremarkable. No abdominal aortic aneurysm. Lymph nodes: Unremarkable. No enlarged lymph nodes. IMPRESSION: 1. Diffuse wall thickening of the proximal transverse colon with scattered diverticula and moderate mesenteric edema, characteristic of diverticulitis. Small area of questionable free air best seen on series 2, image 42 which may represent small microperforation. No abscess Transverse colon mass cannot be entirely excluded, recommend follow-up after resolution Electronically signed by: Alexus Coley MD 10/08/23 22:37 PM Discharge Instructions Given to Patient (Per Discharging Provider) PLEASE REFER TO YOUR NEW MEDICATION LIST AND FOLLOW INSTRUCTIONS CAREFULLY. YOUR NEW MEDICATIONS INCLUDE: Augmentin- antibiotic for acute diverticulitis Probiotics- take for at least 1 month, [employer] recommended Low fiber diet for 6 weeks, then high fiber diet. Drink plenty of fluids. PLEASE CALL YOUR PRIMARY CARE PHYSICIAN OR RETURN TO THE ER IF WITH WORSENING OF SYMPTOMS, INCLUDING abdominal pain, nausea, vomiting, fever/chills, weakness, etc FOLLOW UP WITH PRIMARY CARE PHYSICIAN OUTLINED ABOVE. YOU NEED TO A HAVE A COLONOSCOPY PERFORMED IN 6-8 WEEKS. YOUR PRIMARY CARE PHYSICIAN CAN ARRANGE THIS FOR YOU. Total Time Total Time Spent Total Time Spent (In Minutes): 40 minutes
[2023-10-12 12:25] VITALS: BP 102/60
== END 2023-10-12 13:04 | disposition home or self-care (01) | DRG 392 ==
LOC: ED 17:55 → 3W 10-09 00:08 → INTOOBSV 10-09 00:08 → 3W 10-09 00:22